=== PATIENT | male | born 1955 | race Caucasian/White ===

== ENCOUNTER 2022-03-31 11:37 | Outpatient (CLI) | payer MEDICARE, SELFPAY ==
--- NOTE | 2022-03-31 | ECG_ITS ---
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 Interpretive Statements NAME OF STUDY: TREADMILL STRESS TEST INDICATION: htn, PROCEDURE: At the baseline, the patient's blood pressure was 180/90 with a heart rate of 73. The baseline electrocardiogram showed normal sinus rhythm with normal ST-Ts. Right bundle branch block pattern The patient exercised for 4 minutes and 31 seconds on a standard Preet protocol. Patient attained a maximum heart rate of 114 beats per minute(73% of the maximum predicted heart rate) with a blood pressure at the peak exercise of 198/88 mm Hg. The EKG at the peak exercise revealed no significant changes. Patient did not have any chest pain or any significant cardiac arrhythmias with the exercise During the recovery phase, there were no new changes. Blood pressure at the end of the recovery phase was 127/88 mm Hg with a heart rate of 85 per minute. CONCLUSION: 1. Normal EKG response to treadmill exercise 2. No exercise-induced chest pain or cardiac arrhythmia 3. Impaired exercise tolerance, attained a maximum of 7.0 METs Electronically Signed On 04-02-2022 18:07:53 CDT by Erica Salinas M.D. [id number]
[2022-03-31 12:36] VITALS: BMI 28.3
[2022-03-31 13:02] VITALS: BP 127/88; PULSE 85
== END 2022-03-31 11:38 | disposition home or self-care (01) ==
LOC: CDL 11:41
PROVIDERS: PCP Family Medicine; Visit Provider Nurse Practitioner Family
DX: I10 Essential (primary) hypertension (principal)
CPT/HCPCS: 93017

== ENCOUNTER 2024-06-23 20:56 | Inpatient (IN) | payer MEDICARE, SELFPAY ==
[2024-06-23 19:56] VITALS: BP 143/82; PULSE 64; RESP 16; TEMP 36.9; O2SAT 96
[2024-06-23 20:00] VITALS: BP 143/82; PULSE 63; RESP 13; O2SAT 96
--- NOTE | 2024-06-23 21:07 | PC.RESP ---
1956 EKG cancelled due to patient not being in the hospital at this time.
--- NOTE | 2024-06-23 21:58 | ECG_ITS ---
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
[2024-06-23 22:00] VITALS: PULSE 63
[2024-06-23 22:15] LABS: Bacteria Urine None Seen /hpf; Hyaline Casts Urine 0-4 /lpf; RBC Urine 0-2 /hpf (0-2); Squamous Epithelial Cell Urine 0-5 /hpf (0-5); WBC Urine 0-5 /hpf (0-5)
[2024-06-23 22:17] LABS: Platelet Count 212 10^3/cmm (157-399)
[2024-06-23 22:26] LABS: Add Urine Microscopic? YES; Bilirubin Urine Negative (Negative); Blood Urine Negative (Negative); Glucose Urine UA Trace (Normal); Ketones Urine Trace (Negative); Leukocyte Esterase Urine Negative (Negative); Nitrate Urine Negative (Negative); Protein Urine Negative (Negative); Specific Gravity, Urine 1.016 (1.005-1.030); Urine Appearance Cloudy (CLEAR); Urine Color Yellow (Yellow); pH Urine 5.5 (5-7)
[2024-06-23] MEDS: heparin drip 25,000 UNIT/500 ML PREMIX 24 UNIT IV (22:30)
[2024-06-23] MEDS: heparin 5,000 unit/mL INJ 1 mL IVP (22:31)
[2024-06-23 22:33] LABS: Lactic Sepsis W/Reflex 1.6 mmol/L (0.5-2.2)
[2024-06-23] MEDS: flu vacc pf 24-25 (6 mos+) SYRINGE 45 MCG IM (22:37)
[2024-06-23 22:40] LABS: Troponin(5th) Baseline 227 ng/L (0-15)
[2024-06-23 22:44] VITALS: O2SAT 96
--- NOTE | 2024-06-23 22:50 | P.HP_ITS ---
Providers/Chief Complaint 2 Admitting Physician: Mable Hayes MD Primary Care Provider: Deshaun Alan Chief Complaint: Afib RVR Stemi History of Present Illness Daniel Jaramillo is a 69 year old male with PMH HTN, DM, hypothyroidism, transferred from outside hospital due to c/o chest pain. Patient states he has been experiencing intermittent chest discomfort for about 2 weeks now. 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 There he was found to have A-fib with RVR with heart rate between 1 40-1 50. He received 2 pushes of IV Cardizem, 250 mcg of IV digoxin. Converted into sinus rhythm. At the time of this assessment he continues to be in sinus rhythm with a heart rate of 70/min. Denies any known history of A-fib with RVR. He has received 324 mg aspirin and was started on heparin anticoagulation because his troponins trended up from 47- 53 at the outside hospital. Denies known history of coronary artery disease. He had a stress test here in 2021 which showed normal EKG response to treadmill exercise. No known history of DVT or PE. Review of Systems 2 General: Reports: 10 or more systems reviewed and unremarkable except in HPI and below Const: Denies: fever(s), chills or body aches Eyes: Denies: change in vision, blurry vision or photophobia ENMT: Reports: hoarseness; Denies: throat pain, enlarged tonsils, odynophagia or nasal congestion Card: Denies: chest pain, palpitations, irregular heart rhythm, edema, swelling of feet/ankles, lightheadedness, pre-syncope, dyspnea on exertion or orthopnea Resp: Denies: dyspnea, productive cough, non-productive cough, wheezing, stridor, pain on inspiration, change in phlegm color, hemoptysis or chest congestion GI: Denies: abdominal pain, nausea, vomiting, hematemesis, coffee ground emesis, dysphagia, heartburn, diarrhea, constipation, GI cramping, change in stool character, hematochezia or melena : Denies: flank pain, dysuria, urinary frequency, urinary urgency, urinary hesitancy or hematuria Musc: Denies: neck pain, back pain, extremity pain, joint swelling, joint warmth or deformity Neuro: Denies: headache(s), numbness in extremities, weakness in extremities, sensory changes, difficulty walking, frequent falls, dizziness, vertigo, behavioral changes, Slurred speech present or seizure-like activity Psych: Denies: anxiety, depression, suicidal ideation or homicidal ideation Endo: Denies: polyuria, polydipsia, tired all the time, cold intolerance or hot flashes Maxi/Lymph: Denies: easy bruising or easy bleeding Medications/Allergies Home Medications Medication Instructions Recorded Confirmed Last Taken Type amlodipine 5 mg tablet 5 mg PO BID 06/23/24 06/23/24 Unknown History aspirin 81 mg tablet,delayed 81 mg PO DAILY 06/23/24 06/23/24 Unknown History release tnaygglhnr-ergzlpjgnisru-qkvrkdau 1 - 2 tab PO BID PRN Headache 06/23/24 06/23/24 Unknown History 50 mg-325 mg-40 mg tablet doxazosin 4 mg tablet 4 mg PO BEDTIME 06/23/24 06/23/24 Unknown History empagliflozin 10 mg tablet 10 mg PO DAILY 06/23/24 06/23/24 Unknown History (Jardiance) levothyroxine 200 mcg tablet 200 mcg PO QAM 06/23/24 06/23/24 Unknown History liothyronine 5 mcg tablet 5 mcg PO QAM 06/23/24 06/23/24 Unknown History losartan 100 mg tablet 100 mg PO DAILY 06/23/24 06/23/24 Unknown History lovastatin 40 mg tablet 40 mg PO BEDTIME 06/23/24 06/23/24 Unknown History magnesium chloride 71.5 mg 400 mg PO DAILY 06/23/24 06/23/24 Unknown History (magnesium chloride) tablet,delayed release (Slow-Mag) montelukast 10 mg tablet 10 mg PO BEDTIME 06/23/24 06/23/24 Unknown History Allergies Allergy/AdvReac Type Severity Reaction Status Date / Time banana Allergy ALGY-Anaphy Verified 06/23/24 21:25 laxis codeine Allergy ALGY-Hives Verified 06/23/24 21:25 duck eggs Allergy ADR-Cramping Uncoded 06/23/24 21:25 of the Muscles Vitals/I&O/Wt Last Vital Signs Temp 98.5 F 06/23/24 19:56 Pulse 63 06/23/24 20:00 Resp 13 06/23/24 20:00 BP 143/82 06/23/24 20:00 Pulse Ox 96 06/23/24 22:44 O2 Del Method Room Air 06/23/24 22:44 Weight last 48 hrs Weight 85 kg Physical Exam 2 Narrative: General: No acute distress, AO x3 HEENT: PERRLA, pupils bilaterally equal and reactive, pallors not present Chest: Normal vesicular breath sounds, no added sounds, equal good air entry bilaterally CVS: S1-S2 regular, no murmurs, no tachycardia, no gallops, no rubs Abdomen: Soft, nontender, no organomegaly, bowel sounds present Neuro: No focal deficits, no facial deformity, AO x3, power 5/5 in all limbs Extremities: No edema clubbing or cyanosis Data 06/23/24 22:08 Other Labs: Reviewed labs from outside hospital Troponin baseline, 44, troponin 2 hours 57 with a delta of 13. Sodium 137, potassium 3.9, chloride 103, CO2 20, creatinine 1.09, glucose 250, T. bili 0.2, alkaline phosphatase 67, AST ALT 5/5 Chest x-ray: No acute cardiopulmonary process. A&P Assessment and plan (1) NSTEMI (non-ST elevated myocardial infarction): Patient with multiple cardiac risk factors presenting to the ER tonight with chief complaints of chest pain radiating into shoulder and jaw. From outside hospital 2-hour delta at 13 as noted above. Initial EKG at outside hospital with A-fib RVR for which she received 2 pushes of IV Cardizem and digoxin to 50 mcg x 1. Currently patient is noted to be in sinus rhythm. Monitor on CSU on continuous telemetry. Obtain troponin series currently at our hospital Patient states his chest pain is currently much improved, however still feels the chest to be a little bit sore Continue heparin infusion as started as outside hospital. Monitor platelets and PTT per protocol. He has received aspirin 324 mg already, continue with aspirin 81 mg p.o. daily Atorvastatin 40 mg daily Cardiology consult for possible angiogram Add Nitro-Bid 0.5 inch topically every 6 hours. (2) Hypertension: Continue home dose of doxazosin and losartan. Attempt to add beta-blockers depending on blood pressure trend. (3) Diabetes mellitus: Insulin sliding scale while in the hospital (4) Hypothyroidism: Low TSH at 0.12, check T3-T4. Continue home doses of levothyroxine and liothyronine. Plan DVT prophylaxis: Currently on heparin drip Full code Attestations 2 Medical Necessity Statement*: Greater than 2 midnight stay is anticipated for management of NSTEMI Coding Level of Care Code Acute Code for Chg Fwd High MDM includes number and complexity of problems actively addressed during encounter, amount and/or complexity of data reviewed/ordered and described risk of complication, morbidity or mortality of management as documented Diagnoses NSTEMI (non-ST elevated myocardial infarction) I21.4 Hypertension I10 Diabetes mellitus E11.9 Hypothyroidism E03.9
[2024-06-23 22:51] LABS: NT Pro B Type Natriuretic Pept 348 pg/mL (0-125); Procalcitonin 0.03 ng/mL (0-0.5); Thyroid Stimulating Hormone 0.12 uIU/mL (0.27-4.20); Vitamin B12 353 pg/mL (232-1245)
[2024-06-23 23:01] LABS: Iron 72 ug/dL (59-158); Percent Saturation 21.3 % (20-50); Total Iron Binding Capacity 338 mcg/dl; Unsaturated Iron Binding 266 ug/dL (112-347)
[2024-06-23 23:23] LABS: Free T4 Free Thyroxine 1.41 ng/dL (0.82-1.77)
[2024-06-24] VITALS (11 sets, daily range): BP systolic 130–161; BP diastolic 72–98; PULSE 57–73; RESP 11–18; TEMP 36.4–36.9; O2SAT 93–96; BMI 27.6
[2024-06-24 00:37] LABS: Troponin 5 2HR 318.6 ng/L (0-15); Troponin 5 2HR Delta 91.6 ABS# (0-10)
[2024-06-24] MEDS: nitroglycerin 1 gm/inch oint Pkt 0.5 INCH TOPICAL ×4 (01:53→21:02)
--- NOTE | 2024-06-24 02:27 | ECG_ITS ---
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
[2024-06-24 04:26] LABS: Basophils % 0.6 %; Eosinophils # 0.5 10^3/uL (0.0-0.8); Eosinophils % 6.7 %; Lymphocytes # 3.5 10^3/uL (0.8-4.8); Lymphocytes % 49.9 %; Mean Corpuscular HGB Conc 34.4 g/dL (30-55); Mean Corpuscular Hemoglobin 30.1 pg (27-33); Mean Corpuscular Volume 87.6 fl (82-101); Mean Platelet Volume 10.1 fL (7.4-10.4); Monocytes # 0.5 10^3/uL (0.2-0.9); Monocytes % 6.8 %; Neutrophils # 2.53 10^3/uL (1.8-7.7); Neutrophils % 35.9 %; Nucleated Red Blood Cells % 0 %; Platelet Count 207 10^3/cmm (157-399); Red Blood Count 4.45 10^6/uL (3.85-5.65); Red Cell Distribution Width 13.2 % (12.1-15.1); White Blood Count 7.05 10^3/uL (3.29-11.43)
--- NOTE | 2024-06-24 04:34 | USCV_ITS ---
Daniel Jaramillo Age: 69 Gender: M : 1955 Exam Date: 06/24/2024 13:41 Ordering Phys: Charisma Elizondo MD Technologist: Krishna Mcdonald Exam Location: [facility] [place] Indication: nstemi BP: 136 / 72 HR: 64 Rhythm: Sinus Technical Quality: Adequate MEASUREMENTS (Male / Female) Normal Values 2D ECHO LV Diastolic Diameter PLAX 6.0 cm 4.2 - 5.9 / 3.9 - 5.3 cm IVS Diastolic Thickness 1.1 cm 0.6 - 1.0 / 0.6 - 0.9 cm IVS Systolic Thickness 2.2 cm LVPW Diastolic Thickness 1.4 cm 0.6 - 1.0 / 0.6 - 0.9 cm LVPW Systolic Thickness 1.8 cm LVOT Diameter 2.1 cm LV Ejection Fraction 2D Teich 68.5 % LV Ejection Fraction MOD 4C 63.9 % LV Ejection Fraction MOD 2C 83.8 % LV Ejection Fraction 2C AL 83.4 % LA Diameter 4.3 cm RA Systolic Volume 4C AL 47.0 ml RA Systolic Volume 4C MOD 47.4 ml LA Sys Volume AL 49.3 cm cubed LA Sys Volume Index AL 24.0 cm cubed/m squared Aorta at Sinotubular Diameter 2.6 cm IVC Diameter 1.9 cm M-MODE LA Ao Ratio MM 1.5 AV Cusp Separation MM 2.1 cm DOPPLER AV Peak Velocity 284.0 cm/s LVOT Peak Velocity 114.0 cm/s AV Area Cont Eq vti 3.4 cm squared AV Area Cont Eq pk 1.4 cm squared MV Peak Velocity 119.0 cm/s MV Area PHT 3.5 cm squared Mitral E to A Ratio 1.0 TV Peak Velocity 309.3 cm/s TR Peak Velocity 379.0 cm/s TR Peak Gradient 57.5 mmHg TR Mean Velocity 284.0 cm/s TR Mean Gradient 36.1 mmHg TR Velocity Time Integral 99.3 cm PV Peak Velocity 104.3 cm/s RV Ejection Time 0.3 s FINDINGS Left Ventricle Normal left ventricular size, systolic function and wall thickness, with no regional wall motion abnormalities. Left ventricular ejection fraction is estimated at 60 %. Grade II/IV diastolic dysfunction, moderately elevated filling pressures. Right Ventricle The right ventricle is normal in size and function. Right Atrium The right atrium is normal in size. Left Atrium Moderately increased left atrial size. Mitral Valve Mildly thickened mitral valve. No mitral valve stenosis. Moderate mitral valve regurgitation. Aortic Valve Moderate aortic valve calcification.aortic valve mild restriction. Mild aortic valve regurgitation. Tricuspid Valve Mild tricuspid valve regurgitation. Pulmonic Valve Structurally normal pulmonic valve without significant stenosis. There is no pulmonic regurgitation. Pericardium Normal pericardium without effusion. Aorta Normal ascending aorta dimension. IVC The inferior vena cava appears normal. CONCLUSIONS Normal left ventricular size, systolic function and wall thickness, with no regional wall motion abnormalities. Left ventricular ejection fraction is estimated at 60 %. Grade II/IV diastolic dysfunction, moderately elevated filling pressures. Moderately increased left atrial size. Mildly thickened mitral valve. No mitral valve stenosis. Moderate mitral valve regurgitation. Moderate aortic valve calcification.aortic valve mild restriction. Mild aortic valve regurgitation. There is no pericardial effusion. Right atrial pressure is around 5 mm of mercury. Jenny Mcdermott MD (Electronically Signed) Final Date: 24 June 2024 17:59 S
[2024-06-24 04:46] LABS: Partial Thromboplastin Time 76.1 SECONDS (23.9-36.7)
[2024-06-24 04:50] LABS: Alanine Aminotransferase 24 U/L (0-41); Albumin Level 3.8 g/dL (3.5-5.2); Alkaline Phosphatase 53 U/L (40-130); Anion Gap 15.2 (5-19); Aspartate Amino Transferase 25 U/L (0-40); Blood Urea Nitrogen 13 mg/dL (8-23); Calcium 8.5 mg/dL (8.5-10.5); Carbon Dioxide 22 mmol/L (22-29); Chloride 109 mmol/L (98-107); Creatinine Clr Calc Pharmacy 69.4727; Globulin 2.6 g/dL (1.3-4.6); Glomerular Filtration Rate 66.6 mL/min (90-130); Glucose 166 mg/dL (65-115); Magnesium 1.8 mg/dL (1.7-2.3); Osmolality Calculated 298 mOsm/kg (285-295); Phosphorus 3.9 mg/dL (2.5-4.5); Potassium 4.2 mmol/L (3.5-5.1); Sodium 142 mmol/L (136-145); Total Bilirubin 0.2 mg/dL (0.15-1.2); Total Protein 6.4 g/dL (6.6-8.7)
[2024-06-24 04:51] LABS: Chol HDL Ratio 5.15 mg/dL (1.0-5.00); Cholesterol 139 mg/dL (0-200); HDL Cholesterol 27 mg/dL (60-100); LDL Cholesterol Calculated 74 mg/dL (50-129); LDL HDL Ratio 2.74 RATIO (0.00-3.22); Triglycerides 191 mg/dL (0-150)
[2024-06-24 04:56] LABS: Estmated Average Glucose 200; Hemoglobin A1C 8.6 % (4.0-6.0)
[2024-06-24 04:57] LABS: Procalcitonin 0.04 ng/mL (0-0.5)
[2024-06-24 05:01] LABS: Troponin 5 6HR 437.7 ng/L (0-15); Troponin 5 6HR Delta 210.7 ng/L (0-12)
[2024-06-24 05:46] LABS: Folate Level 9.9 ng/mL (4.5-32.2)
[2024-06-24] MEDS: liothyronine 5 mcg Tablet PO (06:15)
[2024-06-24] MEDS: levothyroxine 200 mcg Tablet PO (06:15)
[2024-06-24 06:32] LABS: Glucose Point of Care 182 mg/dL (70-110)
[2024-06-24] MEDS: losartan 50 mg Tablet 100 MG PO (08:34)
[2024-06-24] MEDS: aspirin 81 mg EC Tablet PO (08:35)
[2024-06-24] MEDS: magnesium oxide 400 mg tablet PO (08:35)
[2024-06-24] MEDS: pantoprazole 40 mg SDV IVP (08:35)
--- NOTE | 2024-06-24 10:13 | XACV_ITS ---
Exam Room: [facility] Ht: 475 cm Wt: 31 kg BSA: 1.78 m2 Gender: Male : 1955 Any Known Allergies: Codeine Exam Priority: Routine Procedure(s): Procedure Description: Diagnostic procedure Procedure Description: Left Heart Catheterization Procedure Description: Left ventriculography Procedure Description: Coronary Angiography Baldemar KUMAR; Diagnostic Cath Status: Urgent Diagnostic Findings * Left Main has no disease. * Proximal Left Anterior Descending: significant 75% stenosis, LEO: 3 flow. * Distal Left Anterior Descending: subtotal occlusion, LEO: 3 flow. * Proximal Right Coronary Artery to Distal Right Coronary Artery: total occlusion, LEO: 3 flow. * Distal Circumflex: total occlusion, LEO: 3 flow. * Distal Circumflex to AV groove continuation of Circumflex Artery collaterallization. * First Obtuse Marginal Branch Segment: obstructive 70% stenosis, LEO: 3 flow. * Second Obtuse Marginal Branch Segment: significant 80% stenosis, LEO: 3 flow. * BloodVessel1: severe 90% stenosis, LEO: 3 flow. * Coronary angiography shows right dominance. Conclusions 1. There is total occlusion coronary artery disease with three vessel disease. 2. All gu are normal. 3. Normal left ventricular systolic function. Ejection fraction of 55%. Recommendations * 1-Return to CSU for close monitoring 2-Continue IV heparin drip as per ACS protocol 3-Statin with LDL goal of 70 mg/dl, aspirin 81 mg p.o. daily for life long 4-CT surgery consults for CABG 5-Optimal medical management for [place] 7-Follow up with Dr. Mcdermott in four weeks and establish care with primary care physician. Interventional RX Recommendation: CABG Diagnostic RX Recommendation: CABG LV EDP: 12 mmHg Ventriculography Ejection Fraction: 55.0 % Left Ventriculography Findings: * Normal left ventricle ejection fraction. Pressures Phase:Rest AO : 129 / 87 ( 107 ) @ 12:13:00 PM 145 / 76 ( 105 ) @ 12:21:00 PM 143 / 74 ( 95 ) @ 12:21:00 PM LV : 148 / -4 / 21 @ 12:20:00 PM 139 / -1 / 23 @ 12:21:00 PM 142 / 0 / 23 @ 12:21:00 PM Valves Phase:DefaultPhase AV : 0.0 @ 11:26:36 AM AV Mean Gradient: 0.0 @ 11:26:36 AM Clinical Evaluation EBL: 5mL-10mL Procedural Details Procedure Consent Obtained. Pre-Procedure Time Out. Identified patient by full name and date of as verbalized by the patient/guarantor. Does the consent match the physician's order: Yes. Accurate & Complete Informed Consent: Yes. Inpatient/Outpatient History & Physical on Chart: Yes. If H&P is completed, is and addenduem needed: Yes. Visualize and Verify Site with Patient/Guarantor: N/A. Relevant Radiology Images available: Yes. The risks, benefits, and alternatives of sedation and/or procedure were discussed by physician. The patient agrees to continue. Procedure started. [facility] Clinical Fraility Score: 3: Managing Well. Trainmaster Indications: ACS > 24 hours/NSTEMI. Chest Pain Symptom Assessment: Typical Angina Symptoms. Cardiovascular Instability: No. Correct patient, site and procedure confirmed by cath team. Current diagnosis: NSTEMI. PERRLA. 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 Lungs clear x 5 lobes. IV Site on Arrival: 18 gauge in the right anticubital. IV Fluids: 0.9% NaCl at KVO. 0 mL infused prior to medical laboratory technical officer. Pre Procedural Pulses: bilateral dorsalis pedis was Doppled. Pre Procedural Pulses: bilateral posterior tibial was Doppled. Pre Procedural Pulses: bilateral radial was 3+. Oxygen started at 2liters/min via nasal canula. right groin was prepped with chloroprep then draped in the usual sterile fashion. right radial was prepped with chloroprep then draped in the usual sterile fashion. Physician notified. Baseline sample Acquired. HR: 62 BPM. Patient's family unavailable. Equipment: 6F - Radial. Cardiac Cath Pack. ACIST Manifold Kit Model BT 2000. Heparinized Saline (2 units/mL), 1000 mL bag. Physician arrived. Physician scrubbed in. Immediate Pre-Procedure Time Out. Correct Patient: Yes; Correct Procedure: Yes; Correct Site: Yes; Correct Patient Position: Yes; Correct Supplies: Yes; Dried Flammable Prep: Yes; Blood Products Available: N/A;. Lidocaine 1% infiltrated to the right radial. Arterial access obtained. A 5 martiniquais TIG catheter in over the exchange J wire. ACT drawn. Results 141 seconds. Therapeutic limits - pre-heparin administration 90-150 seconds and monitoring heparin during a vascular procedure >250 seconds. Multiple views taken of left coronary artery. Multiple views taken of right coronary artery. Catheter redirected to the RCA. Cineography of the RCA performed. Dr. Mcdermott scrubbed out to view cineography. Dr. Mcdermott scrubbed in. Catheter removed over the exchange J wire. A 5 martiniquais Angled Pig catheter in over the exchagne J wire. EDP Sample taken: LV 148/-4,21; HR: 65 BPM; SpO2: 96%. LV gram performed in DANIELS @ 10 mL/second for a total of 30 mL. EDP Sample taken: LV 139/-2,23; HR: 69 BPM; SpO2: 97%. Pullback taken: LV 142/0,23; AO 145/76(105); Mean: 0mmHg, Peak to Peak: 0mmHg, SEP: 6sec/min; HR: 70 BPM; SpO2: 96%. Catheter removed over the exchange J wire. Physician scrubbed out. A TR Band was successful obtaining hemostatsis at the Right Radial artery insertion site. Post Procedure: Pulses reassessed and unchanged. PERRLA. 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 No VTE prophylaxis required. Medication's Wasted: Lidocaine 1% = 17 mL. Medication's Wasted: Nitro = 49.8 mg. Medication's Wasted: Heparin = 3000 units. Total IV fluids: 20 mL. Post-op diagnosis: multivessel CAD. Complications: none. Estimated blood loss: 5mL-10mL. Responsiveness - Normal response to verbal stimuli; alert and oriented, PERRLA. Airway - Unaffected, no intervention required; spontaneous ventilation. Circulation: W/N/L, pulses unchanged. Nausea/Vomiting: No. Procedure completed. Patient transferred by bed to 1st floor. Vital chart was stopped. Access Site Site: Right Radial artery Sheath Size: 6 Fr Hemostasis Method: TR Band Hemostasis Success: Successful Procedure Medications Start: 10:42 AM Stop: :42 AM Medication: Versed Amount: 1 mg Route: I.V. Start: 10:43 AM Stop: 10:43 AM Medication: Fentanyl Amount: 50 mcg Route: I.V. Start: 10:43 AM Stop: :43 AM Medication: Benadryl Amount: 50 mg Route: I.V. Start: 10:54 AM Stop: 10:54 AM Medication: Nitrogylcerin Amount: 200 mcg Route: I.A. Start: 11:00 AM Stop: 11:00 AM Medication: Heparin Amount: 5000 units Route: I.V. Start: 11:05 AM Stop: 11:05 AM Medication: Versed Amount: 1 mg Route: I.V. Start: 11:14 AM Stop: 11:14 AM Medication: Fentanyl Amount: 50 mcg Route: I.V. I, the attending physician, have reviewed and verified all procedure medications. Yes, all medications given per verbal order History/Risk Factors Hypertension: Yes Dyslipidemia: No Peripheral Arterial Disease (PAD): No Myocardial Infarction ([place]): No Obesity: No Renal Disease: No Tobacco Use: Former Prior Interventions PCI: No CABG: No Valve Surgery: No Report Signatures Finalized by Jenny Mcdermott MD on 06/24/2024 06:23 PM
--- NOTE | 2024-06-24 10:34 | P.CONIM_ITS ---
Providers/Reason For Consult 2 Consulting Physician/Specialty*: Jenny Mcdermott MD Reason for Consult*: Non-ST elevation VA Atrial fibrillation with rapid ventricle response Chest pain Requesting Physician: 69-year-old male past medical history si gnificant for hypertension hyperlipidemia history of hypothyroidism and tobacco abuse quit 15 years ago presented to [facility] with shortness of breath chest pain palpitation noted to be in A-fib with RVR given 2 rounds of IV Cardizem boluses followed by IV digoxin, he converted into sinus rhythm chest pain improved, he ruled in for non-ST elevation VA. It is the reason patient was transferred to [facility], overnight troponin increased to more than 400 which is high-sensitivity assay, today I saw the patient he remains in sinus rhythm twelve-lead EKG at was suggestive of baseline right bundle branch block which is not different from his previous EKG, since patient ruled in for non-ST elevation VA and now in sinus rhythm therefore we will proceed with left heart catheterization. Patient has been explained all risk- benefit and alternative for the procedure. He would like to proceed with it. Attending Physician: Jenny Malik MD Primary Care Provider: Deshaun Alan History of Present Illness History of Present Illness Daniel Jaramillo is a 69 year old male Medications/Allergies Home Medications Medication Instructions Recorded Confirmed Last Taken Type amlodipine 5 mg tablet 5 mg PO BID 06/23/24 06/23/24 Unknown History aspirin 81 mg tablet,delayed 81 mg PO DAILY 06/23/24 06/23/24 Unknown History release [id number]-[id number]-cvrrzqgz 1 - 2 tab PO BID PRN Headache 06/23/24 06/23/24 Unknown History 50 mg-325 mg-40 mg tablet doxazosin 4 mg tablet 4 mg PO BEDTIME 06/23/24 06/23/24 Unknown History empagliflozin 10 mg tablet 10 mg PO DAILY 06/23/24 06/23/24 Unknown History (Jardiance) levothyroxine 200 mcg tablet 200 mcg PO QAM 06/23/24 06/23/24 Unknown History liothyronine 5 mcg tablet 5 mcg PO QAM 06/23/24 06/23/24 Unknown History losartan 100 mg tablet 100 mg PO DAILY 06/23/24 06/23/24 Unknown History lovastatin 40 mg tablet 40 mg PO BEDTIME 06/23/24 06/23/24 Unknown History magnesium chloride 71.5 mg 400 mg PO DAILY 06/23/24 06/23/24 Unknown History (magnesium chloride) tablet,delayed release (Slow-Mag) montelukast 10 mg tablet 10 mg PO BEDTIME 06/23/24 06/23/24 Unknown History Allergies Allergy/AdvReac Type Severity Reaction Status Date / Time banana Allergy ALGY-Anaphy Verified 06/23/24 21:25 laxis codeine Allergy ALGY-Hives Verified 06/23/24 21:25 duck eggs Allergy ADR-Cramping Uncoded 06/23/24 21:25 of the Muscles Current Medications Generic Name Dose Route Start Last Admin Trade Name Freq PRN Reason Stop Dose Admin Aspirin 81 mg 06/24/24 09:00 06/24/24 08:35 Aspirin 81 Mg Ec Tablet PO 81 mg DAILY DERREK Administration Heparin Sodium/Sodium Chloride 25,000 unit in 500 mls @ 0 mls/hr 06/23/24 22:00 06/24/24 04:52 Heparin Drip IV 12.94 unit/kg/hr CONT DERREK 22 mls/hr Titration Protocol Per Protocol Insulin Human Lispro 0 unit 06/24/24 08:00 06/24/24 08:11 Insulin Lispro 100 Unit/1 Ml SUBCUT Not Given WM&BEDTIME DERREK Protocol Levothyroxine Sodium 200 mcg 06/24/24 06:00 06/24/24 06:15 Levothyroxine 200 Mcg Tablet PO 200 mcg QAM DERREK Administration Liothyronine Sodium 5 mcg 06/24/24 06:00 06/24/24 06:15 Liothyronine 5 Mcg Tablet PO 5 mcg QAM DERREK Administration Losartan Potassium 100 mg 06/24/24 09:00 06/24/24 08:34 Losartan 50 Mg Tablet PO 100 mg DAILY DERREK Administration Magnesium Oxide 400 mg 06/24/24 09:00 06/24/24 08:35 Magnesium Oxide 400 Mg Tablet PO 400 mg DAILY DERREK Administration Nitroglycerin 0.5 inch 06/24/24 01:30 06/24/24 06:32 Nitroglycerin 1 Gm/Inch Oint Pkt TOPICAL 0.5 inch Q6H DERREK Administration Pantoprazole Sodium 40 mg 06/24/24 09:00 06/24/24 08:35 Pantoprazole 40 Mg Sdv IVP 40 mg DAILY DERREK Administration Vitals/I&O/Wt Last Vital Signs Temp 97.8 F 06/24/24 07:12 Pulse 64 06/24/24 07:12 Resp 16 06/24/24 07:12 BP 147/76 06/24/24 08:34 Pulse Ox 94 06/24/24 07:12 O2 Del Method Room Air 06/24/24 07:12 06/23/24 06/24/24 06/24/24 22:59 06:59 14:59 Intake Total 152.8 / 152.8 Output Total 750 / 750 200 / 200 Balance -597.2 / -597.2 -200 / -200 Weight last 48 hrs Weight 187 lb 6.287 oz Weight 187 lb 6.287 oz Physical Exam 2 Const: OTHER: GENERAL: Patient is alert, awake and oriented x3. HEART: Regular S1 and S2. No murmur, rub or gallop. LUNGS: Clear to auscultate bilaterally. CENTRAL NERVOUS SYSTEM: Grossly nonfocal. EXTREMITIES: Lower extremities with out edema bilaterally. Data 06/24/24 04:02 06/24/24 04:02 A&P Assessment and plan (1) NSTEMI (non-ST elevated myocardial infarction): Patient ruled in for non-ST elevation VA with troponin bump more than 400 we will therefore proceed with left heart catheterization. Continue aspirin and statin add beta-eloise, dual antiplatelet therapy will be added after left heart cath. (2) Hypertension: Well-controlled continue current regimen (3) Diabetes mellitus: As per medicine Plan Because of non-ST elevation VA and needing left heart catheterization patient requires stay which will cross more than 2 midnights. Coding Level of Care Code Acute Code for [facility] Diagnoses NSTEMI (non-ST elevated myocardial infarction) I21.4 Hypertension I10 Diabetes mellitus E11.9
--- NOTE | 2024-06-24 10:40 | P.PN_ITS ---
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 Vitals/I&O/Wt Last Vital Signs Temp 97.8 F 06/24/24 07:12 Pulse 64 06/24/24 07:12 Resp 16 06/24/24 07:12 BP 147/76 06/24/24 08:34 Pulse Ox 94 06/24/24 07:12 O2 Del Method Room Air 06/24/24 07:12 06/23/24 06/24/24 06/24/24 22:59 06:59 14:59 Intake Total 152.8 / 152.8 Output Total 750 / 750 200 / 200 Balance -597.2 / -597.2 -200 / -200 Weight last 48 hrs Weight 85 kg Weight 85 kg Physical Exam 2 Narrative: Awake and alert GCS 15 Nitropaste on Continue heparin drip Pleasant cooperative Pleasant cooperative Abdomen soft Currently on room air Data 06/24/24 04:02 06/24/24 04:02 A&P Assessment and plan (1) Hypertension: (2) NSTEMI (non-ST elevated myocardial infarction): (3) New onset a-fib: (4) Diabetes mellitus: (5) Hypothyroidism: Plan Going for angiogram Continue consistent carb cardiac diet Insulin sliding scale Optimize antihypertensive regimen Patient has converted to sinus rhythm Will touch with cardiology if continuation of anticoagulating agent is needed versus dual antiplatelet therapy Attestations 2 Medical Necessity Statement*: Continue medical management Diagnoses Hypertension I10 NSTEMI (non-ST elevated myocardial infarction) I21.4 New onset a-fib I48.91 Diabetes mellitus E11.9 Hypothyroidism E03.9
--- NOTE | 2024-06-24 10:42 | W.PM.OPSUD ---
Surgery/Procedure H&P Update DATE OF PROCEDURE: June 24, 2024 DATE H&P PERFORMED: 06/24/24 H&P UPDATE INFORMATION: I have reviewed H&P completed within last 30 days, I have examined patient prior to procedure and No changes to prior documentation PREOP DIAGNOSIS: Non-ST elevation PLANNED PROCEDURE: Left heart cath/percutaneous angioplasty if indicated PATIENT REASSESSED PRIOR TO SEDATION, WITH NO CHANGE NOTED: Yes PHYSICAL EXAM: alert, oriented x 3, clear to auscultation bilaterally, regular rate & rhythm and operative site marked AIRWAY EVAL/ANESTHESIA PLAN: ASA II, Risks, benefits & alternatives of sedation and/or procedure discussed and Patient agrees to continue as planned ADDITIONAL INFORMATION: Mallampati 2
[2024-06-24] MEDS: metoprolol succinate ER (24 HR) 25 mg Tablet 12.5 MG PO (12:27)
[2024-06-24] MEDS: insulin lispro 100 unit/1 mL SUBCUT (12:28)
[2024-06-24 13:13] LABS: Partial Thromboplastin Time 135.2 SECONDS (23.9-36.7)
[2024-06-24 13:26] LABS: Glucose Point of Care 150 mg/dL (70-110)
[2024-06-24] MEDS: isosorbide mononitrate 20 mg Tablet PO (17:30)
[2024-06-24 17:41] LABS: Glucose Point of Care 116 mg/dL (70-110)
[2024-06-24] MEDS: montelukast sodium 10 mg Tablet PO (21:00)
[2024-06-24] MEDS: atorvastatin 40 mg Tablet 80 MG PO (21:00)
[2024-06-24] MEDS: doxazosin 4 mg Tablet PO (21:00)
[2024-06-24] MEDS: enoxaparin 80 mg/0.8 mL Syringe SUBCUT (21:01)
--- NOTE | 2024-06-24 21:30 | PC.NURSE ---
called Dr Mcdermott to clarify if heparin was to be restarted since order was still active and microbiology lab analyst report states recommendation to continue IV heparin, received order to dc heparin gtt and start therapeutic lovenox
--- NOTE | 2024-06-24 21:32 | PC.NURSE ---
notified Dr Estrada of patient having two orders for lipitor (80 mg and 20 mg), received order to dc order for 20 mg lipitor
[2024-06-24 22:04] LABS: Glucose Point of Care 142 mg/dL (70-110)
[2024-06-25] VITALS (12 sets, daily range): BP systolic 105–179; BP diastolic 62–90; PULSE 62–83; RESP 14–25; TEMP 36.6–37.1; O2SAT 93–96
[2024-06-25] MEDS: nitroglycerin 1 gm/inch oint Pkt 0.5 INCH TOPICAL ×4 (01:39→21:40)
[2024-06-25 04:57] LABS: Basophils % 0.3 %; Eosinophils # 0.3 10^3/uL (0.0-0.8); Eosinophils % 3.5 %; Hematocrit 38.4 % (37-53); Lymphocytes # 2.6 10^3/uL (0.8-4.8); Lymphocytes % 29.6 %; Mean Corpuscular HGB Conc 33.3 g/dL (30-55); Mean Corpuscular Volume 87.1 fl (82-101); Mean Platelet Volume 10.2 fL (7.4-10.4); Monocytes # 0.6 10^3/uL (0.2-0.9); Monocytes % 6.8 %; Neutrophils # 5.31 10^3/uL (1.8-7.7); Neutrophils % 59.6 %; Nucleated Red Blood Cells % 0 %; Platelet Count 208 10^3/cmm (157-399); Red Blood Count 4.41 10^6/uL (3.85-5.65); Red Cell Distribution Width 13.2 % (12.1-15.1); White Blood Count 8.92 10^3/uL (3.29-11.43)
[2024-06-25 05:27] LABS: Anion Gap 11.9 (5-19); Blood Urea Nitrogen 11 mg/dL (8-23); Calcium 8.6 mg/dL (8.5-10.5); Carbon Dioxide 24 mmol/L (22-29); Chloride 103 mmol/L (98-107); Creatinine Clr Calc Pharmacy 69.3255; Glomerular Filtration Rate 66.6 mL/min (90-130); Glucose 164 mg/dL (65-115); Osmolality Calculated 283 mOsm/kg (285-295); Potassium 3.9 mmol/L (3.5-5.1); Sodium 135 mmol/L (136-145)
[2024-06-25] MEDS: levothyroxine 200 mcg Tablet PO (05:54)
[2024-06-25] MEDS: liothyronine 5 mcg Tablet PO (05:54)
[2024-06-25 06:38] LABS: Glucose Point of Care 170 mg/dL (70-110)
[2024-06-25] MEDS: losartan 50 mg Tablet 100 MG PO (08:00)
[2024-06-25] MEDS: magnesium oxide 400 mg tablet PO (08:00)
[2024-06-25] MEDS: isosorbide mononitrate 20 mg Tablet PO ×2 (08:02→18:30)
[2024-06-25] MEDS: aspirin 81 mg EC Tablet PO (08:02)
[2024-06-25] MEDS: clopidogrel 75 mg Tablet PO (08:02)
[2024-06-25] MEDS: enoxaparin 80 mg/0.8 mL Syringe SUBCUT ×2 (08:03→21:42)
[2024-06-25] MEDS: metoprolol succinate ER (24 HR) 25 mg Tablet 12.5 MG PO (08:03)
[2024-06-25] MEDS: insulin lispro 100 unit/1 mL SUBCUT ×2 (08:03→21:39)
[2024-06-25] MEDS: pantoprazole 40 mg SDV IVP (08:04)
--- NOTE | 2024-06-25 09:12 | PC.SOCIAL ---
IMM Update Pg. 2 of IMM Updated and reviewed with patient. Copy provided.
--- NOTE | 2024-06-25 09:35 | P.PN_ITS ---
Subjective 2 Subjective: Staged procedure on Tuesday I will advance his diet to cardiac Patient is not endorsing active chest pain Nitropaste is still on Vitals/I&O/Wt Last Vital Signs Temp 97.8 F 06/25/24 04:00 Pulse 73 06/25/24 08:02 Resp 22 H 06/25/24 04:00 BP 121/70 06/25/24 08:02 Pulse Ox 96 06/25/24 04:00 O2 Del Method Room Air 06/24/24 16:00 06/24/24 06/25/24 06/25/24 22:59 06:59 14:59 Intake Total 947.2 / 1547.2 Output Total 550 / 1300 150 / 1450 Balance 397.2 / 247.2 -150 / 97.2 Weight last 48 hrs Weight 84.414 kg Weight 84.595 kg Weight 85 kg Weight 85 kg Weight 85 kg Physical Exam 2 Narrative: Hemodynamically stable GCS 15 No active chest pain Pleasant cooperative Afebrile Nonfocal neuroexam Data 06/25/24 04:09 06/25/24 04:09 A&P Assessment and plan (1) Hypertension: (2) NSTEMI (non-ST elevated myocardial infarction): (3) New onset a-fib: (4) Diabetes mellitus: (5) Hypothyroidism: Plan Planning for staged procedure on Tuesday for multivessel disease with angioplasty Currently chest pain-free Nitropaste on Hemodynamically stable Cardiac diet for now He will finish 48 hours of heparin drip today, Continue dual antiplatelet therapy Attestations 2 Medical Necessity Statement*: Continue medical management Diagnoses Hypertension I10 NSTEMI (non-ST elevated myocardial infarction) I21.4 New onset a-fib I48.91 Diabetes mellitus E11.9 Hypothyroidism E03.9
--- NOTE | 2024-06-25 10:33 | PC.CHAP ---
Pastoral Care Encounter/Spiritual Assessment Type of Contact [] Declined software release engineer visit [] Patient/Family/Request visit [] Outpatient visit [] Follow-up visit [] Physician referral [] Code/Alert [x] Routine visit [] Staff referral [] Actively dying [] Patient sleeping [] Family support [] [] Out of room [] Palliative care [] [] Receiving care in room [] Pre-surgical visit [] Trauma [] Long length of stay [] ICU visit [] Other: Relational/Emotional Strength [] Patient feels connected with others/family/visitors/staff [] Distress [] Loneliness/isolation [] Abandonment Spirituality of Patient [x] Person of Zainab [] Attends Adventism of their Zainab [x] Believes in Prayer [] Reads Bible or Jewish materials [] There are Spiritual issues to be addressed Supervisor Accounts Receivable Interventions [x] Prayer [x] Active listening [] Non-anxious presence [] Spiritual/emotional support [] Crisis/trauma care [] Spiritual counseling [] Bereavement support [] Provided bereavement packet [x] Provided Bible/devotional materials [] Provided toy/stuffed animal, coloring book to patient or family member [] Provided Communion [] Anointing/Seymour [] Salvation [x Completed spiritual assessment [] Other: Impact on Illness or Injury [] Angry [] Fearful [] Anxious [] Often cries [] Exhaustion [] Unable to work [] Unable to attend moravian [] Unable to walk/stand [] Unable to read [] Unable to drive [] Unable to eat/drink [] Unable to sleep [] Unable to be with family [] Patient intubated [] Other: Summary Time spent with patient 15 min
[2024-06-25] MEDS: clopidogrel 75 mg Tablet 525 MG PO (11:12)
[2024-06-25 11:38] LABS: Glucose Point of Care 140 mg/dL (70-110)
--- NOTE | 2024-06-25 12:42 | P.PN_ITS ---
Subjective 2 Subjective: Patient is doing well today. VSS. He is without chest pain at this time. He has remained NSR. Currently taking DAPT with aspirin and Plavix. Creatinine stable at 1.1, unchanged from previously. Right wrist puncture site clean, dry, intact w/o s/s of hematoma or pseudoaneurysm. Previous heart cath done yesterday showed a total occlusion coronary artery disease with three vessel disease. Patient's EF is normal at 55%. Medications: Reviewed: Yes Vitals/I&O/Wt Last Vital Signs Temp 97.8 F 06/25/24 04:00 Pulse 83 06/25/24 09:40 Resp 14 06/25/24 09:40 BP 121/70 06/25/24 09:40 Pulse Ox 94 06/25/24 09:40 O2 Del Method Room Air 06/24/24 16:00 06/24/24 06/25/24 06/25/24 22:59 06:59 14:59 Intake Total 947.2 / 1547.2 Output Total 550 / 1300 150 / 1450 Balance 397.2 / 247.2 -150 / 97.2 Weight last 48 hrs Weight 186 lb 1.6 oz Weight 186 lb 8 oz Weight 187 lb 6.287 oz Weight 187 lb 6.287 oz Weight 187 lb 6.287 oz Physical Exam 2 Narrative: Conostitutional: No apparent distress, healthy appearing, well nourished HENMT: normoceophalic Eye: PERRL Neck: No carotid bruit bilaterally Muskuloskeletal: Full ROM Lymphatic: no lymphedema noted Respiratory: Normal respiratory effort, clear to auscultation bilaterally throughout all lung morales, no use of accessory muscles Cardio: No JVD, regular rate, regular rhythm, S1 S2 normal, no murmurs, peripheral pulses 2+ throughout GI: Normal to inspection, nondistended Extremities: Full ROM, normal, normal capillary refill, no cyanosis or edema Neuro: Alert and oriented x4, no focal motor deficits Psych: Affect normal, denies suicidal ideation, mental status grossly normal Skin: No rashes or lesions noted, no wounds Data 06/25/24 04:09 06/25/24 04:09 A&P Assessment and plan (1) NSTEMI (non-ST elevated myocardial infarction): Patient is s/p left heart cath that showed proximal LAD 75% stenosed with a distal occlusion, RCA totally occluded, distal circumflex totally occluded, OM1 70% stenosis and OM2 80% stenosis. After discussing with the patient the risks and benefits of coronary artery bypass grafting versus angioplasty and possible stenting, the patient has elected to undergo angioplasty and stenting here. 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 Patient was educated on the risks and benefits of procedure including but not limited to bleeding, SD, stroke, unsuccessful procedure, among others. He full agrees to proceed. Will load patient with 600 mg Plavix today, start 75 mg daily tomorrow. Will hold Lovenox tomorrow night as possible intervention on Tuesday around 10 AM (2) New onset a-fib: Patient arrived in A-fib RVR but was given 2 doses of IV Cardizem and 250 mg IV digoxin. He was converted to normal sinus rhythm and has remained since. At this time we will continue aspirin and Plavix. Patient may need heart monitor in the future. Continue beta-eloise for now, he is on Lovenox for anticoagulation (3) Hypertension: Well-controlled on the losartan and metoprolol Qualifiers: Hypertension type: primary hypertension Qualified Code(s): I10 - Essential (primary) hypertension Plan As stated above. Attestations 2 Medical Necessity Statement*: Patient require PCI since he refused CABG, his PCI scheduled for day after tomorrow, he requires continuation of hospitalization for optimization of medicine, will proceed with PCI coming Tuesday Coding Level of Care Code Acute Code for [facility] Diagnoses NSTEMI (non-ST elevated myocardial infarction) I21.4 New onset a-fib I48.91 Primary hypertension I10 Hypertension type: primary hypertension
[2024-06-25 18:07] LABS: Glucose Point of Care 132 mg/dL (70-110)
[2024-06-25 21:20] LABS: Glucose Point of Care 160 mg/dL (70-110)
[2024-06-25] MEDS: doxazosin 4 mg Tablet PO (21:38)
[2024-06-25] MEDS: montelukast sodium 10 mg Tablet PO (21:38)
[2024-06-25] MEDS: atorvastatin 40 mg Tablet 80 MG PO (21:38)
[2024-06-26] VITALS (12 sets, daily range): BP systolic 130–143; BP diastolic 70–78; PULSE 66–80; RESP 11–22; TEMP 36.4–37; O2SAT 95–97; BMI 27.4
[2024-06-26] MEDS: nitroglycerin 1 gm/inch oint Pkt 0.5 INCH TOPICAL ×2 (02:41→08:25)
[2024-06-26 04:45] LABS: Basophils % 0.4 %; Eosinophils # 0.3 10^3/uL (0.0-0.8); Eosinophils % 3.9 %; Hematocrit 38.8 % (37-53); Lymphocytes # 2.2 10^3/uL (0.8-4.8); Lymphocytes % 31.5 %; Mean Corpuscular HGB Conc 34.8 g/dL (30-55); Mean Corpuscular Hemoglobin 30.2 pg (27-33); Mean Corpuscular Volume 86.8 fl (82-101); Mean Platelet Volume 9.8 fL (7.4-10.4); Monocytes # 0.6 10^3/uL (0.2-0.9); Monocytes % 9.2 %; Neutrophils # 3.79 10^3/uL (1.8-7.7); Neutrophils % 54.9 %; Nucleated Red Blood Cells % 0 %; Platelet Count 188 10^3/cmm (157-399); Red Blood Count 4.47 10^6/uL (3.85-5.65); White Blood Count 6.92 10^3/uL (3.29-11.43)
[2024-06-26 05:08] LABS: Anion Gap 13.8 (5-19); Blood Urea Nitrogen 13 mg/dL (8-23); Calcium 8.4 mg/dL (8.5-10.5); Carbon Dioxide 25 mmol/L (22-29); Chloride 104 mmol/L (98-107); Creatinine Clr Calc Pharmacy 69.2596; Glomerular Filtration Rate 66.6 mL/min (90-130); Glucose 178 mg/dL (65-115); Osmolality Calculated 293 mOsm/kg (285-295); Potassium 3.8 mmol/L (3.5-5.1); Sodium 139 mmol/L (136-145)
[2024-06-26] MEDS: levothyroxine 200 mcg Tablet PO (05:58)
[2024-06-26] MEDS: liothyronine 5 mcg Tablet PO (05:58)
[2024-06-26 06:02] LABS: Glucose Point of Care 166 mg/dL (70-110)
[2024-06-26] MEDS: pantoprazole 40 mg SDV IVP (08:24)
[2024-06-26] MEDS: insulin lispro 100 unit/1 mL SUBCUT ×4 (08:25→21:45)
[2024-06-26] MEDS: magnesium oxide 400 mg tablet PO (08:25)
[2024-06-26] MEDS: isosorbide mononitrate 20 mg Tablet PO ×2 (08:25→17:44)
[2024-06-26] MEDS: clopidogrel 75 mg Tablet PO (08:26)
[2024-06-26] MEDS: enoxaparin 80 mg/0.8 mL Syringe SUBCUT (08:26)
[2024-06-26] MEDS: metoprolol succinate ER (24 HR) 25 mg Tablet 12.5 MG PO (08:27)
[2024-06-26] MEDS: losartan 50 mg Tablet 100 MG PO (08:27)
[2024-06-26] MEDS: aspirin 81 mg EC Tablet PO (08:27)
[2024-06-26] MEDS: FUROsemide 10 mg/mL SDV 2mL 20 MG IVP (08:38)
--- NOTE | 2024-06-26 10:28 | P.PN_ITS ---
Subjective 2 Subjective: Patient is going for angiogram tomorrow, most likely will be able to go home by No active chest pain Still has Nitropaste I have asked nurse to test this with cardiology to see if we can give him nitro free interval Given IV Lasix, requested chest x-ray Vitals/I&O/Wt Last Vital Signs Temp 98.4 F 06/26/24 07:29 Pulse 80 06/26/24 08:25 Resp 16 06/26/24 07:29 BP 138/70 06/26/24 08:27 Pulse Ox 97 06/26/24 07:29 O2 Del Method Room Air 06/26/24 07:29 06/25/24 06/26/24 06/26/24 22:59 06:59 14:59 Intake Total 120 / 240 360 / 360 Output Total 125 / 250 Balance -5 / -10 360 / 360 Weight last 48 hrs Weight 84.368 kg Weight 84.414 kg Weight 84.595 kg Physical Exam 2 Narrative: awake and alert Euvolemic GCS 15 Nonfocal neuroexam Nitropaste on Hemodynamically stable Pleasant cooperative No active chest pain Currently on room air however has crackles on lung auscultation right greater than left Data 06/26/24 04:34 06/26/24 04:34 A&P Assessment and plan (1) Hypertension: Qualifiers: Hypertension type: primary hypertension Qualified Code(s): I10 - Essential (primary) hypertension (2) NSTEMI (non-ST elevated myocardial infarction): (3) New onset a-fib: (4) Diabetes mellitus: (5) Hypothyroidism: Plan N.p.o. after midnight Chest pain-free Hemodynamically stable Going for staged procedure for multivessel disease Creatinine is normal Currently on room air Echo shows grade 2 diastolic function, given IV Lasix, right-sided lower base of the lung shows crackles on auscultation Attestations 2 Medical Necessity Statement*: Angiogram tomorrow Diagnoses Primary hypertension I10 Hypertension type: primary hypertension NSTEMI (non-ST elevated myocardial infarction) I21.4 New onset a-fib I48.91 Diabetes mellitus E11.9 Hypothyroidism E03.9
--- NOTE | 2024-06-26 11:01 | P.PN_ITS ---
Subjective 2 Subjective: Patient is doing well today. VSS. He is without chest pain at this time. He has remained NSR. Currently taking DAPT with aspirin and Plavix. Creatinine stable at 1.1, unchanged from previously. Right wrist puncture site clean, dry, intact w/o s/s of hematoma or pseudoaneurysm. He has no complaints at this time. Medications: Reviewed: Yes Vitals/I&O/Wt Last Vital Signs Temp 98.4 F 06/26/24 07:29 Pulse 80 06/26/24 08:25 Resp 16 06/26/24 07:29 BP 138/70 06/26/24 08:27 Pulse Ox 97 06/26/24 07:29 O2 Del Method Room Air 06/26/24 07:29 06/25/24 06/26/24 06/26/24 22:59 06:59 14:59 Intake Total 120 / 240 360 / 360 Output Total 125 / 250 Balance -5 / -10 360 / 360 Weight last 48 hrs Weight 186 lb Weight 186 lb Weight 186 lb 1.6 oz Weight 186 lb 8 oz Physical Exam 2 Narrative: GENERAL: Patient is alert, awake and oriented x3. NECK: No jugular vein distension. HEENT: No cyanosis. HEART: Regular S1 and S2. No murmur, rub or gallop. LUNGS: Clear to auscultate bilaterally. EXTREMITIES: Bilateral radials 2+, palpable 2+ PT bilaterally Data 06/26/24 04:34 06/26/24 04:34 A&P Assessment and plan (1) NSTEMI (non-ST elevated myocardial infarction): Patient doing well w/o chest pain. Patient is s/p left heart cath that showed proximal LAD 75% stenosed, RCA totally occluded, distal circumflex is subtotally occluded, OM1 70% stenosis and OM2 80% stenosis. Plan is to take patient to the dock or pier laborer tomorrow around 10. NPO after midnight. (2) New onset a-fib: Patient arrived in A-fib RVR but was given 2 doses of IV Cardizem and 250 mg IV digoxin. He was converted to normal sinus rhythm and has remained since. At this time we will continue aspirin and Plavix. Patient may need heart monitor in the future. Continue beta-eloise for now, he is on Lovenox for anticoagulation. (3) Hypertension: Well-controlled on the losartan and metoprolol Qualifiers: Hypertension type: primary hypertension Qualified Code(s): I10 - Essential (primary) hypertension Plan As stated above. Attestations 2 Medical Necessity Statement*: Patient require continuation hospitalization for above defined care Coding Level of Care Code Acute Code for [facility] Diagnoses NSTEMI (non-ST elevated myocardial infarction) I21.4 New onset a-fib I48.91 Primary hypertension I10 Hypertension type: primary hypertension
--- NOTE | 2024-06-26 11:40 | XR_ITS ---
WS: [id number] Exam: XR chest 2V* [id number] Date/Time of Exam: 06/26/2024 11:45 AM Reason For Exam: adventitious lung sounds No priors. The lungs are clear and fully expanded. Cardiomediastinal silhouette is unremarkable. No pleural effu sions. Bony structures are intact. Advanced spondylosis of the thoracic spine. XR/XR chest 2V* [id number] IMPRESSION: 1. No acute cardiopulmonary finding.
[2024-06-26 12:03] LABS: Glucose Point of Care 161 mg/dL (70-110)
[2024-06-26 17:23] LABS: Glucose Point of Care 164 mg/dL (70-110)
[2024-06-26] MEDS: atorvastatin 40 mg Tablet 80 MG PO (20:11)
[2024-06-26] MEDS: montelukast sodium 10 mg Tablet PO (20:11)
[2024-06-26] MEDS: doxazosin 4 mg Tablet PO (20:11)
[2024-06-26 20:49] LABS: Glucose Point of Care 202 mg/dL (70-110)
[2024-06-27] VITALS (13 sets, daily range): BP systolic 123–147; BP diastolic 61–92; PULSE 52–84; RESP 9–74; TEMP 36.4–37.6; O2SAT 93–96
[2024-06-27] MEDS: liothyronine 5 mcg Tablet PO (05:18)
[2024-06-27] MEDS: levothyroxine 200 mcg Tablet PO (05:18)
[2024-06-27 06:03] LABS: Blood Urea Nitrogen 16 mg/dL (8-23); Calcium 8.9 mg/dL (8.5-10.5); Carbon Dioxide 26 mmol/L (22-29); Chloride 101 mmol/L (98-107); Creatinine Clr Calc Pharmacy 68.9131; Glomerular Filtration Rate 66.6 mL/min (90-130); Glucose 174 mg/dL (65-115); Osmolality Calculated 293 mOsm/kg (285-295); Sodium 139 mmol/L (136-145)
[2024-06-27 06:29] LABS: Glucose Point of Care 162 mg/dL (70-110)
[2024-06-27] MEDS: isosorbide mononitrate 20 mg Tablet PO ×2 (08:41→17:18)
[2024-06-27] MEDS: losartan 50 mg Tablet 100 MG PO (08:41)
[2024-06-27] MEDS: aspirin 81 mg EC Tablet PO (08:41)
[2024-06-27] MEDS: metoprolol succinate ER (24 HR) 25 mg Tablet 12.5 MG PO (08:41)
[2024-06-27] MEDS: pantoprazole 40 mg SDV IVP (08:41)
[2024-06-27] MEDS: clopidogrel 75 mg Tablet PO (08:41)
[2024-06-27] MEDS: magnesium oxide 400 mg tablet PO (08:41)
--- NOTE | 2024-06-27 09:35 | PC.SOCIAL ---
IMM Update Pg. 2 of IMM updated and reviewed with patient, who verbalized understanding. Copy provided.
--- NOTE | 2024-06-27 10:07 | W.PM.OPSUD ---
Surgery/Procedure H&P Update DATE OF PROCEDURE: June 27, 2024 DATE H&P PERFORMED: 06/24/24 H&P UPDATE INFORMATION: I have reviewed H&P completed within last 30 days, I have examined patient prior to procedure and No changes to prior documentation CHANGES TO PREVIOUS DOCUMENTATION: 69-year-old male presented with non-ST elevation [place] atrial fibrillation, he was noted to have multivessel coronary artery disease he was referred for CABG patient turned down the CABG he understand risk-benefit and alternative for intervention percutaneously, he understand that CABG in case of FOURNIER is superior then the multiple stenting however he thinks that CABG will not suits with 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 He would like to proceed with stents, will today proceed with coronary angiogram/percutaneous angioplasty of LAD and circumflex. Patient has chronically occluded RCA we will manage it medically. Further plan will be devised as per progress the patient. Patient understand risk for stroke major bleed leading to transfusion more than 2%, he understand risk for contrast induced nephropathy hematoma infection bruising and pseudoaneurysm. He would like to proceed with it. PREOP DIAGNOSIS: Non-ST elevation PLANNED PROCEDURE: Operation Date: 06/24/24 10:30 Proposed Procedures p Cardiac Catheterization(Not Applicable) - Jenny Mcdermott MD Operation Date: 06/27/24 10:00 Proposed Procedures p Cardiac Catheterization(Left) - Jenny Mcdermott MD AIRWAY EVAL/ANESTHESIA PLAN: ASA II, Risks, benefits & alternatives of sedation and/or procedure discussed and Patient agrees to continue as planned ADDITIONAL INFORMATION: Mallampati 2
--- NOTE | 2024-06-27 10:38 | PC.NURSE ---
Patient left CSU for laboratory helper at 0930.
--- NOTE | 2024-06-27 12:55 | P.PN_ITS ---
Subjective 2 Subjective: This morning. No acute events overnight. Denies any chest pain at this time. Going for cath today. Vitals/I&O/Wt Last Vital Signs Temp 97.6 F 06/27/24 07:36 Pulse 52 L 06/27/24 12:30 Resp 15 06/27/24 12:30 BP 129/78 06/27/24 12:30 Pulse Ox 94 06/27/24 12:30 O2 Del Method Room Air 06/27/24 12:15 06/26/24 06/27/24 06/27/24 22:59 06:59 14:59 Intake Total 240 / 960 400 / 1360 Output Total 1100 / 1100 Balance 240 / 960 -700 / 260 Weight last 48 hrs Weight 83.461 kg Weight 84.368 kg Weight 84.368 kg Physical Exam 2 Narrative: GENERAL: Patient is alert, awake and oriented x3. NECK: No jugular vein distension. HEENT: No cyanosis. HEART: Regular S1 and S2. No murmur, rub or gallop. LUNGS: Clear to auscultate bilaterally. EXTREMITIES: Bilateral radials 2+, palpable 2+ PT bilaterally Data 06/26/24 04:34 06/27/24 04:25 A&P Assessment and plan (1) Hypertension: Qualifiers: Hypertension type: primary hypertension Qualified Code(s): I10 - Essential (primary) hypertension (2) NSTEMI (non-ST elevated myocardial infarction): (3) New onset a-fib: (4) Diabetes mellitus: (5) Hypothyroidism: Plan #Multivessel coronary artery disease. #Hypothyroidism #Diabetes mellitus #Atrial fibrillation #NSTEMI #Hypertension ? N.p.o. since midnight last night going for cardiac cath today for potential PCI. ? Chest pain-free today. Hemodynamically stable. Creatinine is normal. Currently on room air, family present at bedside ? Echo shows grade 2 diastolic dysfunction. 1100 urine output overnight. ? Plan to monitor in hospital today status post cath. ? Continue aspirin Plavix, therapeutic Lovenox Imdur 20 twice daily ? Full code DVT prophylaxis: On therapeutic Lovenox. Attestations 2 Medical Necessity Statement*: Cardiac cath today. Diagnoses Primary hypertension I10 Hypertension type: primary hypertension NSTEMI (non-ST elevated myocardial infarction) I21.4 New onset a-fib I48.91 Diabetes mellitus E11.9 Hypothyroidism E03.9
--- NOTE | 2024-06-27 13:04 | PC.NURSE ---
Patient returned to [facility] from labor delivery specialist at 1250. Patient came with a right groin sheath.
[2024-06-27 13:33] LABS: Glucose Point of Care 154 mg/dL (70-110)
[2024-06-27 15:05] LABS: Partial Thromboplastin Time 52.8 SECONDS (23.9-36.7)
[2024-06-27 16:12] LABS: Partial Thromboplastin Time 29.8 SECONDS (23.9-36.7)
[2024-06-27 17:00] LABS: Glucose Point of Care 185 mg/dL (70-110)
[2024-06-27] MEDS: insulin lispro 100 unit/1 mL SUBCUT ×2 (17:18→20:56)
[2024-06-27 20:47] LABS: Glucose Point of Care 246 mg/dL (70-110)
[2024-06-27] MEDS: atorvastatin 40 mg Tablet 80 MG PO (20:55)
[2024-06-27] MEDS: doxazosin 4 mg Tablet PO (20:55)
[2024-06-27] MEDS: montelukast sodium 10 mg Tablet PO (20:55)
[2024-06-28] VITALS: BP 121/70; PULSE 79; RESP 19; TEMP 36.6; O2SAT 92
[2024-06-28 04:00] VITALS: BP 129/68; PULSE 77; RESP 20; O2SAT 96
[2024-06-28] MEDS: liothyronine 5 mcg Tablet PO (05:33)
[2024-06-28] MEDS: levothyroxine 200 mcg Tablet PO (05:33)
[2024-06-28 05:40] LABS: Basophils % 0.4 %; Eosinophils # 0.4 10^3/uL (0.0-0.8); Eosinophils % 5.1 %; Hematocrit 39.5 % (37-53); Lymphocytes # 2.1 10^3/uL (0.8-4.8); Lymphocytes % 30.6 %; Mean Corpuscular HGB Conc 33.2 g/dL (30-55); Mean Corpuscular Volume 87.4 fl (82-101); Mean Platelet Volume 10.2 fL (7.4-10.4); Monocytes # 0.6 10^3/uL (0.2-0.9); Monocytes % 8.6 %; Neutrophils # 3.86 10^3/uL (1.8-7.7); Neutrophils % 55.2 %; Nucleated Red Blood Cells % 0 %; Platelet Count 195 10^3/cmm (157-399); Red Blood Count 4.52 10^6/uL (3.85-5.65); Red Cell Distribution Width 13.1 % (12.1-15.1)
[2024-06-28 06:00] VITALS: PULSE 68
[2024-06-28 06:04] LABS: Anion Gap 15.9 (5-19); Blood Urea Nitrogen 17 mg/dL (8-23); Calcium 8.6 mg/dL (8.5-10.5); Carbon Dioxide 25 mmol/L (22-29); Chloride 103 mmol/L (98-107); Creatinine Clr Calc Pharmacy 67.1978; Glomerular Filtration Rate 66.6 mL/min (90-130); Glucose 189 mg/dL (65-115); Osmolality Calculated 297 mOsm/kg (285-295); Potassium 3.9 mmol/L (3.5-5.1); Sodium 140 mmol/L (136-145)
[2024-06-28 06:33] LABS: Glucose Point of Care 210 mg/dL (70-110)
[2024-06-28 07:14] VITALS: BP 135/72; PULSE 74; RESP 18; TEMP 36.6; O2SAT 98
[2024-06-28] MEDS: enoxaparin 80 mg/0.8 mL Syringe SUBCUT (08:17)
[2024-06-28] MEDS: insulin lispro 100 unit/1 mL SUBCUT (08:18)
[2024-06-28 08:19] VITALS: BP 135/72
[2024-06-28] MEDS: pantoprazole 40 mg SDV IVP (08:19)
[2024-06-28] MEDS: losartan 50 mg Tablet 100 MG PO (08:19)
[2024-06-28] MEDS: aspirin 81 mg EC Tablet PO (08:19)
[2024-06-28] MEDS: isosorbide mononitrate 20 mg Tablet PO (08:19)
[2024-06-28] MEDS: magnesium oxide 400 mg tablet PO (08:20)
[2024-06-28] MEDS: metoprolol succinate ER (24 HR) 25 mg Tablet 12.5 MG PO (08:20)
[2024-06-28] MEDS: clopidogrel 75 mg Tablet PO (08:20)
--- NOTE | 2024-06-28 09:33 | P.DS_ITS ---
Discharge Providers Date of Admission: 06/23/24 20:56 Date of Discharge: June 28, 2024 Attending Provider at Admission: Mable Hayes MD Attending Provider at Discharge: Mable Hayes MD Primary Care Provider: Deshaun Alan Diagnoses at Discharge Discharge Diagnosis (1) Hypertension: Status: Acute Qualifiers: Hypertension type: primary hypertension Qualified Code(s): I10 - Essential (primary) hypertension (2) NSTEMI (non-ST elevated myocardial infarction): Status: Acute (3) New onset a-fib: Status: Acute (4) Diabetes mellitus: Status: Acute (5) Hypothyroidism: Status: Acute Reason for Visit Reason for Visit: Afib RVR Stemi Hospital Course Hospital Course Presented to the hospital for chest pain and was diagnosed with NSTEMI. Underwent cardiac catheterization found to have multivessel coronary artery disease and CABG was recommended. Patient did not want to proceed with surgery and therefore he was taken to [facility] again for PCI and 1 stent was placed in LAD. He will later need a staged intervention to possibly stent another vessel at a later time. Echo did show grade 2 diastolic dysfunction. He was continued on aspirin and Plavix and Imdur. He also had an episode of atrial fibrillation during hospitalization and was set up with an event monitor at discharge. 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 He would like to wait off on that at this time and until we review the results of the event monitor. He will discuss with cardiology as an outpatient regarding anticoagulation in the future. Will continue home on aspirin Plavix atorvastatin at this time Imdur was added, metoprolol succinate was added. Patient to follow-up with cardiology as an outpatient. Discussed with him to come back to the hospital if he has any chest pain. He was also seen by cardiology on day of discharge. I have asked cracking unit operator to call patient with appointment for the event monitor. Physical Exam Narrative: GENERAL: Patient is alert, awake and oriented x3. NECK: No jugular vein distension. HEENT: No cyanosis. HEART: Regular S1 and S2. No murmur, rub or gallop. LUNGS: Clear to auscultate bilaterally. EXTREMITIES: Bilateral radials 2+, palpable 2+ PT bilaterally Discharge Data Studies Completed and Pending Completed Studies During Hospitalization Category Date Time Status [employer]PL[employer] MACHINE [employer] request for service Routine Exams 06/24/24 10:13 Completed XR chest 2V* [id number] Routine Exams 06/26/24 11:40 Completed CV. 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 No acute cardiopulmonary finding. Laboratory Results WBC 7.00 10^3/uL (3.29-11.43) 06/28/24 05:08 RBC 4.52 10^6/uL (3.85-5.65) 06/28/24 05:08 Hgb 13.10 g/dL (11.27-16.99) 06/28/24 05:08 Hct 39.5 % (37-53) 06/28/24 05:08 MCV 87.4 fl (82-101) 06/28/24 05:08 MCH 29.0 pg (27-33) 06/28/24 05:08 MCHC 33.2 g/dL (30-55) 06/28/24 05:08 RDW 13.1 % (12.1-15.1) 06/28/24 05:08 Plt Count 195 10^3/cmm (157-399) 06/28/24 05:08 MPV 10.2 fL (7.4-10.4) 06/28/24 05:08 Neut % (Auto) 55.2 % 06/28/24 05:08 Lymph % (Auto) 30.6 % 06/28/24 05:08 Fountain % (Auto) 8.6 % 06/28/24 05:08 Eos % (Auto) 5.1 % 06/28/24 05:08 Baso % (Auto) 0.4 % 06/28/24 05:08 Neut # (Auto) 3.86 10^3/uL (1.8-7.7) 06/28/24 05:08 Lymph # (Auto) 2.1 10^3/uL (0.8-4.8) 06/28/24 05:08 Fountain # (Auto) 0.6 10^3/uL (0.2-0.9) 06/28/24 05:08 Eos # (Auto) 0.4 10^3/uL (0.0-0.8) 06/28/24 05:08 Baso # (Auto) 0.0 10^3/uL (0.0-0.1) 06/28/24 05:08 Nucleated RBC % (auto) 0 % 06/28/24 05:08 Nucleated RBCs # 0.0 /100WBC 06/28/24 05:08 PT 13.50 SECONDS (12.1-14.9) 06/23/24 22:08 INR 1.00 (0.8-1.2) 06/23/24 22:08 APTT 29.8 SECONDS (23.9-36.7) 06/27/24 15:50 Sodium 140 mmol/L (136-145) 06/28/24 05:08 Potassium 3.9 mmol/L (3.5-5.1) 06/28/24 05:08 Chloride 103 mmol/L (98-107) 06/28/24 05:08 Carbon Dioxide 25 mmol/L (22-29) 06/28/24 05:08 Anion Gap 15.9 (5-19) 06/28/24 05:08 BUN 17 mg/dL (8-23) 06/28/24 05:08 Creatinine 1.1 mg/dL (0.7-1.2) 06/28/24 05:08 GFR Calculation 66.6 mL/min (90-130) L 06/28/24 05:08 Glucose 189 mg/dL (65-115) H 06/28/24 05:08 POC Glucose 210 mg/dL (70-110) H 06/28/24 06:10 Estimat Average Glucose 200 06/24/24 04:02 Hemoglobin A1c 8.6 % (4.0-6.0) H 06/24/24 04:02 Calculated Osmolality 297 mOsm/kg (285-295) H 06/28/24 05:08 Lactic Acid 1.6 mmol/L (0.5-2.2) 06/23/24 22:08 Calcium 8.6 mg/dL (8.5-10.5) 06/28/24 05:08 Phosphorus 3.9 mg/dL (2.5-4.5) 06/24/24 04:02 Magnesium 1.8 mg/dL (1.7-2.3) 06/24/24 04:02 Iron 72 ug/dL (59-158) 06/23/24 22:08 TIBC 338 mcg/dl 06/23/24 22:08 % Saturation 21.3 % (20-50) 06/23/24 22:08 Unsat Iron Binding 266 ug/dL (112-347) 06/23/24 22:08 Total Bilirubin 0.2 mg/dL (0.15-1.2) 06/24/24 04:02 AST 25 U/L (0-40) 06/24/24 04:02 ALT 24 U/L (0-41) 06/24/24 04:02 Alkaline Phosphatase 53 U/L (40-130) 06/24/24 04:02 Troponin T Baseline 227 ng/L (0-15) H* 06/23/24 22:08 Troponin T 120 Minute 318.6 ng/L (0-15) H 06/23/24 00:06 Delta Troponin T 91.6 ABS# (0-10) H* 06/23/24 00:06 Troponin T Hi Sens 6Hr 437.7 ng/L (0-15) H 06/24/24 04:02 Troponin T Hi Sens 6Hr Delta 210.7 ng/L (0-12) H* 06/24/24 04:02 NT-Pro-B Natriuret Pep 348 pg/mL (0-125) H 06/23/24 22:08 Total Protein 6.4 g/dL (6.6-8.7) L 06/24/24 04:02 Albumin 3.8 g/dL (3.5-5.2) 06/24/24 04:02 Globulin 2.6 g/dL (1.3-4.6) 06/24/24 04:02 Triglycerides 191 mg/dL (0-150) H 06/24/24 04:02 Cholesterol 139 mg/dL (0-200) 06/24/24 04:02 LDL Cholesterol, Calc 74 mg/dL (50-129) 06/24/24 04:02 HDL Cholesterol 27 mg/dL (60-100) L 06/24/24 04:02 LDL/HDL Ratio 2.74 RATIO (0.00-3.22) 06/24/24 04:02 Cholesterol/HDL Ratio 5.15 mg/dL (1.0-5.00) H 06/24/24 04:02 Vitamin B12 353 pg/mL (232-1245) 06/23/24 22:08 Folate 9.9 ng/mL (4.5-32.2) 06/24/24 04:02 Procalcitonin 0.04 ng/mL (0-0.5) 06/24/24 04:02 TSH 0.12 uIU/mL (0.27-4.20) L 06/23/24 22:08 Free T4 1.41 ng/dL (0.82-1.77) 06/23/24 22:08 Urine Color Yellow (Yellow) 06/23/24 22:00 Urine Appearance Cloudy (CLEAR) A 06/23/24 22:00 Urine pH 5.5 (5-7) 06/23/24 22:00 Ur Specific [place] 1.016 (1.005-1.030) 06/23/24 22:00 Urine Protein Negative (Negative) 06/23/24 22:00 Urine Glucose (UA) Trace (Normal) H 06/23/24 22:00 Urine Ketones Trace (Negative) 06/23/24 22:00 Urine Blood Negative (Negative) 06/23/24 22:00 Urine Nitrate Negative (Negative) 06/23/24 22:00 Urine Bilirubin Negative (Negative) 06/23/24 22:00 Urine Urobilinogen 1.0 mg/dL (Negative) 06/23/24 22:00 Ur Leukocyte Esterase Negative (Negative) 06/23/24 22:00 Urine RBC 0-2 /hpf (0-2) 06/23/24 22:00 Urine WBC 0-5 /hpf (0-5) 06/23/24 22:00 Ur Squamous Epith Cells 0-5 /hpf (0-5) 06/23/24 22:00 Amorphous Sediment Not Reportable 06/23/24 22:00 Urine Bacteria None seen /hpf (NONE) 06/23/24 22:00 Hyaline Casts 0-4 /lpf H 06/23/24 22:00 Vitals Last Vital Signs Temp 97.9 F 06/28/24 07:14 Pulse 74 06/28/24 07:14 Resp 18 06/28/24 07:14 BP 135/72 06/28/24 08:19 Pulse Ox 98 06/28/24 07:14 O2 Del Method Room Air 06/28/24 07:14 Discharge Plan Discharge Patient Disposition: Home Condition: Stable Prescriptions: New atorvastatin 40 mg Tablet 80 mg PO BEDTIME Qty: 60 0RF isosorbide mononitrate 20 mg Tablet 20 mg PO BID Qty: 60 0RF clopidogrel 75 mg Tablet 75 mg PO DAILY Qty: 30 0RF metoprolol succinate 25 mg Tablet Extended Release 24 Hr 12.5 mg PO DAILY Qty: 15 0RF Continued liothyronine 5 mcg tablet 5 mcg PO QAM nycluagahk-gywoffllrfnuv-zsmd 50-325-40 mg tablet 1 - 2 tab PO BID PRN (Reason: Headache) doxazosin 4 mg tablet 4 mg PO BEDTIME montelukast 10 mg tablet 10 mg PO BEDTIME levothyroxine 200 mcg tablet 200 mcg PO QAM losartan 100 mg tablet 100 mg PO DAILY Slow-Mag 71.5 mg Tablet,Delayed Release (Dr/Ec) 400 mg PO DAILY Jardiance 10 mg tablet 10 mg PO DAILY aspirin 81 mg Tablet,Delayed Release (Dr/Ec) 81 mg PO DAILY Qty: 30 0RF Discontinued lovastatin 40 mg tablet 40 mg PO BEDTIME amlodipine 5 mg tablet 5 mg PO BID Discharge Orders: Discharge Order (Routine); Ordered 06/28/24 Ordered By: Mable Hayes Other Ambulatory Orders: MCT/Event Monitor 30 Days (Routine) Timeframe: 1 Day Facility: [facility] - Location: Radiology Ordered By: Mable Hayes Referrals: Jenny Mcdermott MD [Physician] - 09/12/24 2:00 pm Laquita Juarez FNP [Nurse Practitioner] - 07/05/24 11:30 am Discharge Diet: Cardiac and Diabetic Discharge Activity: Limit activity as instructed Patient Instructions: Isosorbide Dinitrate (By mouth), Metoprolol (By mouth), Atorvastatin (By mouth), Clopidogrel (By mouth), Hypertension, Heart Attack (DC), A-fib (Atrial Fibrillation) (DC), Coronary Angioplasty (DC), Opioid Safety Discharge Attestations Time Spent in Discharge Care*: greater than 30 min Quality Metrics Clinical Quality Measures [ No reported AMI, CVA or VTE this stay] Coding Level of Care Code Acute Code for [facility] Fwd Diagnoses Primary hypertension I10 Hypertension type: primary hypertension NSTEMI (non-ST elevated myocardial infarction) I21.4 New onset a-fib I48.91 Diabetes mellitus E11.9 Hypothyroidism E03.9
[2024-06-28 10:57] VITALS: BP 114/74; PULSE 78; RESP 21; O2SAT 96
--- NOTE | 2024-06-28 11:05 | P.PN_ITS ---
Subjective 2 Subjective: Patient doing well today with no complaints. He is s/p angiogram. Groin site on the right clean dry intact no signs or symptoms of hematoma. Denies leg pain. Denies chest pain or shortness of breath. Overall he is doing well without complaints. Denies palpitations. Medications: Reviewed: Yes Vitals/I&O/Wt Last Vital Signs Temp 97.9 F 06/28/24 07:14 Pulse 78 06/28/24 10:57 Resp 21 H 06/28/24 10:57 BP 114/74 06/28/24 10:57 Pulse Ox 96 06/28/24 10:57 O2 Del Method Room Air 06/28/24 07:14 06/27/24 06/28/24 06/28/24 22:59 06:59 14:59 Intake Total 240 / 360 360 / 360 Output Total 925 / 925 Balance -685 / -565 360 / 360 Weight last 48 hrs Weight 173 lb 9.6 oz Weight 184 lb Physical Exam 2 Narrative: General: No apparent distress, healthy appearing, well nourished Neck: No carotid bruit bilaterally Muskuloskeletal: Full ROM Respiratory: Normal respiratory effort, clear to auscultation bilaterally throughout all lung morales, no use of accessory muscles Cardio: No JVD, regular rate, regular rhythm, S1 S2 normal, no murmurs, peripheral pulses 2+ throughout palpated DP PT and radials bilaterally Extremities: Full ROM, normal, normal capillary refill, no cyanosis or edema Neuro: Alert and oriented x4, no focal motor deficits Psych: Affect normal, denies suicidal ideation, mental status grossly normal Skin: No rashes or lesions noted, right groin puncture site and wrist puncture site clean dry intact soft no signs or symptoms of hematoma or evidence of pseudoaneurysm Data 06/28/24 05:08 06/28/24 05:08 A&P Assessment and plan (1) Hypertension: Well-controlled on the losartan and metoprolol Qualifiers: Hypertension type: primary hypertension Qualified Code(s): I10 - Essential (primary) hypertension (2) NSTEMI (non-ST elevated myocardial infarction): Patient doing well w/o chest pain. Patient is s/p left heart cath. (3) New onset a-fib: Patient arrived in A-fib RVR but was given 2 doses of IV Cardizem and 250 mg IV digoxin. He was converted to normal sinus rhythm and has remained since. At this time we will continue aspirin and Plavix. Patient rate has been well controlled. Will discharge on a holter monitor. Continue beta-eloise for now. Plan Discussed plan with patient and hospitalist. Coding Level of Care Code Acute Code for [facility] Fwd Diagnoses Primary hypertension I10 Hypertension type: primary hypertension NSTEMI (non-ST elevated myocardial infarction) I21.4 New onset a-fib I48.91
--- NOTE | 2024-06-28 14:05 | PC.NURSE ---
Patients right femoral sheath was removed on 06/27/2024. Manual pressure was held x 20 minutes. Hemostasis was obtained right away after pulling the sheath. No hemotoma was noted. Patient tolerated well. Patient was educated that he must leave his right leg straight and not sit up until 2300. Patient states understanding.
== END 2024-06-28 11:41 | disposition home or self-care (01) | DRG 322 ==
PROVIDERS: Internal Medicine; Internal Medicine Cardiovascular Disease; Student in an Organized Health Care Education/Training Program; Admitting Provider Internal Medicine; PCP Family Medicine; Visit Provider Internal Medicine
PROC: 027034Z Dilation of Coronary Artery, One Artery with Drug-eluting Intraluminal Device, Percutaneous Approach (ICD-10-PCS; principal; 2024-06-27 10:00)
DX: I21.4 Non-ST elevation (NSTEMI) myocardial infarction (principal); I10 Essential (primary) hypertension; E11.9 Type 2 diabetes mellitus without complications; E03.9 Hypothyroidism, unspecified; I48.91 Unspecified atrial fibrillation; Z79.82 Long term (current) use of aspirin; I25.10 Atherosclerotic heart disease of native coronary artery without angina pectoris; Z79.02 Long term (current) use of antithrombotics/antiplatelets; Z79.84 Long term (current) use of oral hypoglycemic drugs
CPT/HCPCS: 36415; 36416; 71046; 80048; 80053; 80061; 81001; 82607; 82746; 82962; 83036; 83540; 83550; 83605; 83735; 83880; 84100; 84145; 84439; 84443; 84484; 85025; 85049; 85347; 85610; 85730; 90686; 93005; 93306; 93458; 94664; 96372; 96374; 96375; 96376; 99152; 99153; A9270; C1725; C1769; C1874; C1887; C1894; C9600; J1200; J1644; J1650; J1815; J1940; J2250; J2470; J3010; J3490; J7030; J7050; Q9967

== ENCOUNTER → 2024-07-05 11:24 | Outpatient (BNVA) | payer MEDICARE, SELFPAY | PROVIDERS: PCP Family Medicine; Visit Provider Nurse Practitioner Family | DX: I48.91 Unspecified atrial fibrillation (principal); I10 Essential (primary) hypertension; R06.02 Shortness of breath; R07.9 Chest pain, unspecified; I25.10 Atherosclerotic heart disease of native coronary artery without angina pectoris; I25.2 Old myocardial infarction; K21.9 Gastro-esophageal reflux disease without esophagitis; Z87.891 Personal history of nicotine dependence | CPT/HCPCS: 36415; 80048; 83880; 99214 ==

== ENCOUNTER 2024-07-12 18:42 | Inpatient (IN) | payer MEDICARE, SELFPAY ==
--- NOTE | 2024-07-12 16:53 | USCV_ITS ---
Daniel Jaramillo Age: 69 Gender: M : 1955 Exam Date: 07/12/2024 18:53 Ordering Phys: Mable Hayes MD Technologist: STEPHANIE Exam Location: [facility] [place] Indication: chest pain, nstemi BP: 141 / 83 HR: 79 Rhythm: Atrial fibrillation , irregular rhythm Technical Quality: Adequate MEASUREMENTS (Male / Female) Normal Values 2D ECHO LV Diastolic Diameter PLAX 4.7 cm 4.2 - 5.9 / 3.9 - 5.3 cm IVS Diastolic Thickness 1.5 cm 0.6 - 1.0 / 0.6 - 0.9 cm IVS Systolic Thickness 2.3 cm LVPW Diastolic Thickness 1.2 cm 0.6 - 1.0 / 0.6 - 0.9 cm LVPW Systolic Thickness 1.7 cm LVOT Diameter 1.6 cm LV Ejection Fraction 2D Teich 63.1 % LV Ejection Fraction MOD 4C 61.7 % LV Ejection Fraction MOD 2C 46.5 % LV Ejection Fraction 2C AL 46.8 % LA Diameter 5.0 cm LA Sys Volume AL 70.6 cm cubed LA Sys Volume Index AL 34.0 cm cubed/m squared Aorta at Sinotubular Diameter 3.1 cm IVC Diameter 1.9 cm M-MODE LA Ao Ratio MM 1.5 AV Cusp Separation MM 2.1 cm DOPPLER AV Peak Velocity 111.0 cm/s LVOT Peak Velocity 123.0 cm/s AV Area Cont Eq vti 1.9 cm squared AV Area Cont Eq pk 2.2 cm squared MV Peak Velocity 98.7 cm/s MV Area PHT 3.3 cm squared Mitral E to A Ratio 0.0 TV Peak Velocity 262.7 cm/s TR Peak Velocity 270.0 cm/s TR Peak Gradient 29.2 mmHg TV Peak E Velocity 73.0 cm/s Right Atrial Pressure 3.0 mmHg Pulmonary Artery Systolic Pressu 32.2 mmHg PV Peak Velocity 116.0 cm/s FINDINGS Left Ventricle Normal left ventricular size, systolic function and wall thickness, with no regional wall motion abnormalities. Left ventricular ejection fraction is estimated at 55%. Grade II/IV diastolic dysfunction, moderately elevated filling pressures. Right Ventricle The right ventricle is normal in size and function. Right Atrium The right atrium is normal in size. Left Atrium Moderately increased left atrial size. Mitral Valve Moderately thickened mitral valve. No mitral valve stenosis. Moderate mitral valve regurgitation. Aortic Valve Moderate aortic valve calcification. Mild aortic valve stenosis, mean gradient 2.3 mmHg, KEYON 1.9 cm squared. Trace aortic valve regurgitation. Tricuspid Valve Trace tricuspid valve regurgitation. Pulmonic Valve Trace pulmonary valve regurgitation. Pericardium Normal pericardium without effusion. Aorta Normal ascending aorta dimension. IVC The inferior vena cava appears normal. CONCLUSIONS Normal left ventricular size, systolic function and wall thickness, with no regional wall motion abnormalities. Left ventricular ejection fraction is estimated at 55%. Grade II/IV diastolic dysfunction, moderately elevated filling pressures. Moderately thickened mitral valve. No mitral valve stenosis. Moderate mitral valve regurgitation. Moderately increased left atrial size. Moderate aortic valve calcification. Mild aortic valve stenosis, mean gradient 2.3 mmHg, KEYON 1.9 cm squared. Trace aortic valve regurgitation. There is no pericardial effusion. Pulmonary artery systolic pressure is within normal limits. Right atrial pressure is around 5 mm of mercury. Jenny Mcdermott MD (Electronically Signed) Final Date: 12 July 2024 21:37 S
[2024-07-12 19:14] VITALS: BMI 28.5
[2024-07-12 19:24] VITALS: BP 132/92; PULSE 89; RESP 16; TEMP 36.8; O2SAT 97
--- NOTE | 2024-07-12 19:46 | P.HP_ITS ---
Providers/Chief Complaint Admitting Physician: Mable Hayes MD Primary Care Provider: Deshaun Alan Chief Complaint: Afib History of Present Illness Daniel Jaramillo is a 69 year old male who was recently discharged in the hospital after management of non-STEMI, Dr. Morrissey was consulted patient went for cardiac cath status post PCI to LAD patient has multivessel disease decided against CABG he was discharged on aspirin and Plavix along Imdur presented with chief complaint of worsening of chest pain. Patient was discharged on event monitor for concern related to A-fib he follow-up with cardiology clinic there was no episode of rapid heart rate or any symptoms. He is not on any anticoagulating agent. 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 He has been compliant with his medications, does not smoke or drink alcohol stays physically active. Patient is stating that if CABG is needed he will go for it Review of Systems Const: Denies: fever(s) Eyes: Denies: change in vision ENMT: Denies: throat pain Card: Reports: chest pain Resp: Reports: dyspnea Medications/Allergies Home Medications Medication Instructions Recorded Confirmed Last Taken Type eqvulzmqeo-cymxvpssxmmsy-sdxgcwun 1 - 2 tab PO BID PRN Headache 06/23/24 07/05/24 Unknown History 50 mg-325 mg-40 mg tablet doxazosin 4 mg tablet 4 mg PO BEDTIME 06/23/24 07/05/24 Unknown History empagliflozin 10 mg tablet 10 mg PO DAILY 06/23/24 07/05/24 Unknown History (Jardiance) levothyroxine 200 mcg tablet 200 mcg PO QAM 06/23/24 07/05/24 Unknown History liothyronine 5 mcg tablet 5 mcg PO QAM 06/23/24 07/05/24 Unknown History losartan 100 mg tablet 100 mg PO DAILY 06/23/24 07/05/24 Unknown History magnesium chloride 71.5 mg 400 mg PO DAILY 06/23/24 07/05/24 Unknown History (magnesium chloride) tablet,delayed release (Slow-Mag) montelukast 10 mg tablet 10 mg PO BEDTIME 06/23/24 07/05/24 Unknown History aspirin 81 mg tablet,delayed 81 mg PO DAILY #30 tabs 06/28/24 07/05/24 Unknown Rx release atorvastatin 40 mg tablet 80 mg (2 x 40 mg) PO BEDTIME #60 06/28/24 07/05/24 Unknown Rx tabs clopidogrel 75 mg tablet 75 mg PO DAILY #30 tabs 06/28/24 07/05/24 Unknown Rx isosorbide mononitrate 20 mg tablet 20 mg PO BID #60 tabs 06/28/24 07/05/24 Unknown Rx metoprolol succinate 25 mg 12.5 mg (1/2 x 25 mg) PO DAILY #15 06/28/24 07/05/24 Unknown Rx tablet,extended release 24 hr tabs Allergies Allergy/AdvReac Type Severity Reaction Status Date / Time banana Allergy ALGY-Anaphy Verified 07/05/24 11:31 laxis codeine Allergy ALGY-Hives Verified 07/05/24 11:31 duck eggs Allergy ADR-Cramping Uncoded 07/05/24 11:31 of the Muscles PFSH Acute PFSH: Medical History (Updated 07/12/24 @ 20:25 by Jenny Malik MD) New onset a-fib Wearing Holter monitor currently in sinus rhythm Hypothyroidism Diabetes mellitus Coronary artery disease Social History Smoking and tobacco/nicotine status: former use of tobacco/nicotine Vitals/I&O/Wt Last Vital Signs Temp 98.2 F 07/12/24 19:24 Pulse 89 07/12/24 19:24 Resp 16 07/12/24 19:24 BP 132/92 07/12/24 19:24 Pulse Ox 97 07/12/24 19:24 O2 Del Method Room Air 07/12/24 19:24 Physical Exam Narrative: Pleasant cooperative Laying supine Euvolemic S1, S2 with PVCs Awake and alert After chest pain No audible stridor or wheezing Nonfocal neuroexam Hemodynamically stable Appears stated age A&P Assessment and plan (1) Hypertension: Qualifiers: Hypertension type: primary hypertension Qualified Code(s): I10 - Essential (primary) hypertension (2) Coronary artery disease: (3) Unstable angina: Plan Unstable angina Established coronary disease multivessel disease on previous cath I will let patient eat until midnight Start aspirin and Plavix Continue heparin drip No active chest pain Dr. Mcdermott consulted he is aware Continue metoprolol and losartan Patient is compliant with his medications Patient is stating that if CABG is needed he will go for it N.p.o. 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
--- NOTE | 2024-07-12 20:20 | ECG_ITS ---
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
[2024-07-12] MEDS: pantoprazole 40 mg SDV IVP (21:10)
[2024-07-12] MEDS: aspirin 81 mg EC Tablet PO (21:10)
[2024-07-12] MEDS: clopidogrel 75 mg Tablet PO (21:10)
[2024-07-12] MEDS: atorvastatin 40 mg Tablet 80 MG PO (21:10)
[2024-07-12] MEDS: heparin 5,000 unit/mL INJ 1 mL IVP (21:11)
[2024-07-12] MEDS: heparin drip 25,000 UNIT/500 ML PREMIX 25 UNIT IV (21:11)
[2024-07-12 22:00] VITALS: PULSE 100
[2024-07-12 22:32] LABS: Basophils % 0.5 %; Eosinophils # 0.4 10^3/uL (0.0-0.8); Eosinophils % 5.2 %; Hematocrit 38.2 % (37-53); Lymphocytes # 2.3 10^3/uL (0.8-4.8); Lymphocytes % 29.5 %; Mean Corpuscular HGB Conc 33.8 g/dL (30-55); Mean Corpuscular Hemoglobin 29.2 pg (27-33); Mean Corpuscular Volume 86.4 fl (82-101); Mean Platelet Volume 10.5 fL (7.4-10.4); Monocytes # 0.5 10^3/uL (0.2-0.9); Monocytes % 6.5 %; Neutrophils # 4.57 10^3/uL (1.8-7.7); Nucleated Red Blood Cells % 0 %; Platelet Count 203 10^3/cmm (157-399); Red Blood Count 4.42 10^6/uL (3.85-5.65); Red Cell Distribution Width 13.3 % (12.1-15.1); White Blood Count 7.87 10^3/uL (3.29-11.43)
[2024-07-12 22:51] LABS: Troponin(5th) Baseline 155 ng/L (0-15)
[2024-07-12 22:53] LABS: Potassium 3.7 mmol/L (3.5-5.1)
--- NOTE | 2024-07-12 22:54 | ECG_ITS ---
[facility]13 Pat Name: Daniel Jaramillo Department: Room: 104 Gender: Male Critical Care Registered Nurse: : 1955 Requested By: Mable Hayes Order Number: [id number] Rossy MD: Ramon Rubio M.D. Measurements Intervals [place] Rate: 98 P: 0 MI: 0 QRS: 42 QRSD: 140 T: 6 QT: 380 QTc: 486 Interpretive Statements ATRIAL FIBRILLATION INDETERMINATE AXIS RIGHT BUNDLE BRANCH BLOCK [120+ ms QRS DURATION, UPRIGHT V1, 40+ ms S IN I/aVL/V4/V5/V6] Compared to ECG 07/12/2024 20:20:39 Indeterminate axis now present Electronically Signed On 07-13-2024 18:20:02 MOTORCYCLE TECHNICIAN by Ramon Rubio M.D. [email or web address]
[2024-07-12 23:14] LABS: Alanine Aminotransferase 18 U/L (0-41); Albumin Level 3.8 g/dL (3.5-5.2); Alkaline Phosphatase 61 U/L (40-130); Anion Gap 15.7 (5-19); Aspartate Amino Transferase 23 U/L (0-40); Blood Urea Nitrogen 13 mg/dL (8-23); Calcium 8.5 mg/dL (8.5-10.5); Carbon Dioxide 23 mmol/L (22-29); Chloride 106 mmol/L (98-107); Creatinine Clr Calc Pharmacy 77.4712; Globulin 2.7 g/dL (1.3-4.6); Glomerular Filtration Rate 74.3 mL/min (90-130); Glucose 168 mg/dL (65-115); NT Pro B Type Natriuretic Pept 2135 pg/mL (0-125); Osmolality Calculated 296 mOsm/kg (285-295); Sodium 141 mmol/L (136-145); Thyroid Stimulating Hormone 0.07 uIU/mL (0.27-4.20); Total Bilirubin 0.3 mg/dL (0.15-1.2); Total Protein 6.5 g/dL (6.6-8.7)
[2024-07-13] VITALS (12 sets, daily range): BP systolic 107–131; BP diastolic 57–91; PULSE 60–99; RESP 16–22; TEMP 36.6–37; O2SAT 94–97
--- NOTE | 2024-07-13 00:20 | CTR_ITS ---
PROCEDURE INFORMATION: Exam: CTA Chest With Contrast Exam date and time: 07/13/2024 5:30 AM Age: 69 years old Clinical indication: Pain; Chest pressure; Additional info: R/O pe TECHNIQUE: Imaging protocol: Computed tomographic angiography of the chest with contrast. Exam focused on the arteries. 3D rendering (Not supervised by radiologist): MIP and/or 3D reconstructed images were created by the technologist. Radiation optimization: All CT scans at this facility use at least one of these dose optimization techniques: automated exposure control; mA and/or kV adjustment per patient size (includes targeted exams where dose is matched to clinical indication); or iterative reconstruction. Contrast material: OMNI 350; Contrast volume: 100 ml; Contrast route: INTRAVENOUS (IV); COMPARISON: CR XR chest 2V* [id number] 06/26/2024 11:51 AM RADIATION DOSE METRICS: Total DLP (mGy-cm): 439.32 FINDINGS: Pulmonary arteries: Normal. No pulmonary emboli. Aorta: The aorta is normal in caliber without aneurysm. There is calcified plaque involving the aorta and coronary vessels. The aorta is not opacified to the extent necessary to evaluate for an aortic dissection. Lungs: There is minimal atelectasis at the lung bases. There is mild septal thickening bilaterally. Findings could be related to mild edema. There is also diffuse bronchial wall thickening involving the upper and lower lobes bilaterally. This can be seen with edema as well. Other possible etiologies would include a bronchitis or respiratory bronchiolitis. There are a few opacified lower lobe bronchi as well. No focal consolidation is appreciated. Somewhat subtle emphysematous changes are noted involving both lungs. Pleural spaces: There are small bilateral pleural effusions. Heart: Unremarkable. No cardiomegaly. No pericardial effusion. Lymph nodes: There are numerous small as well as slightly enlarged mediastinal and hilar lymph nodes. Bones/joints: Unremarkable. No acute fracture. Soft tissues: Unremarkable. CT/CT angio chest PE protcl [id number] IMPRESSION: 1. Small pleural effusions with septal thickening and bronchial wall thickening. Findings most compatible with mild edema. There could be a component of bronchitis or respiratory bronchiolitis. 2. There are numerous small as well as slightly enlarged mediastinal and hilar lymph nodes. Findings are somewhat more numerous than generally expected on a reactive basis. Pulmonary referral may be of benefit for further appropriate workup/follow-up. COMMENTS: The presence of pulmonary emphysema on CT is an independent risk factor for lung cancer. In the absence of a history or active diagnosis of lung cancer, it is recommended that this patient with emphysema be evaluated for enrollment in a low dose CT lung cancer screening program.
[2024-07-13 00:52] LABS: Troponin 5 2HR 184.1 ng/L (0-15); Troponin 5 2HR Delta 29.1 ABS# (0-10)
[2024-07-13 04:01] LABS: Basophils # 0.1 10^3/uL (0.0-0.1); Basophils % 0.6 %; Eosinophils # 0.4 10^3/uL (0.0-0.8); Hematocrit 38.1 % (37-53); Lymphocytes # 2.4 10^3/uL (0.8-4.8); Lymphocytes % 28.3 %; Mean Corpuscular HGB Conc 33.6 g/dL (30-55); Mean Corpuscular Hemoglobin 29.7 pg (27-33); Mean Corpuscular Volume 88.4 fl (82-101); Mean Platelet Volume 10.1 fL (7.4-10.4); Monocytes # 0.6 10^3/uL (0.2-0.9); Monocytes % 7.1 %; Neutrophils # 4.88 10^3/uL (1.8-7.7); Neutrophils % 58.6 %; Nucleated Red Blood Cells % 0 %; Platelet Count 187 10^3/cmm (157-399); Red Blood Count 4.31 10^6/uL (3.85-5.65); Red Cell Distribution Width 13.3 % (12.1-15.1); White Blood Count 8.33 10^3/uL (3.29-11.43)
[2024-07-13 04:32] LABS: Partial Thromboplastin Time 91.5 SECONDS (23.9-36.7)
[2024-07-13 04:33] LABS: Alanine Aminotransferase 17 U/L (0-41); Albumin Level 3.7 g/dL (3.5-5.2); Alkaline Phosphatase 54 U/L (40-130); Aspartate Amino Transferase 20 U/L (0-40); Blood Urea Nitrogen 13 mg/dL (8-23); Calcium 8.2 mg/dL (8.5-10.5); Carbon Dioxide 23 mmol/L (22-29); Chloride 107 mmol/L (98-107); Globulin 2.1 g/dL (1.3-4.6); Glomerular Filtration Rate 74.3 mL/min (90-130); Glucose 169 mg/dL (65-115); Magnesium 1.6 mg/dL (1.7-2.3); Osmolality Calculated 298 mOsm/kg (285-295); Sodium 142 mmol/L (136-145); Total Bilirubin 0.4 mg/dL (0.15-1.2); Total Protein 5.8 g/dL (6.6-8.7)
[2024-07-13 04:41] LABS: Troponin 5 6HR 265.6 ng/L (0-15); Troponin 5 6HR Delta 110.6 ng/L (0-12)
[2024-07-13] MEDS: iohexol 350 mg/mL 500 mL Btl (per mL) IV (05:38)
[2024-07-13] MEDS: levothyroxine 200 mcg Tablet PO (05:54)
[2024-07-13] MEDS: losartan 50 mg Tablet 100 MG PO (08:07)
[2024-07-13] MEDS: metoprolol succinate ER (24 HR) 25 mg Tablet 12.5 MG PO (08:07)
[2024-07-13] MEDS: magnesium sulfate premix 2 GM/50 ML PIGGYBACK IV (08:23)
[2024-07-13] MEDS: clopidogrel 75 mg Tablet PO (08:24)
[2024-07-13] MEDS: aspirin 81 mg EC Tablet PO (08:24)
[2024-07-13] MEDS: isosorbide mononitrate 20 mg Tablet PO ×2 (08:24→17:15)
--- NOTE | 2024-07-13 08:58 | PC.SOCIAL ---
IMM Update pg 2 of IMM Updated and reviewed w/ patient. Copy provided and copy dated, initialed and placed in chart.
--- NOTE | 2024-07-13 09:17 | P.CONIM_ITS ---
Providers/Reason For Consult 2 Consulting Physician/Specialty*: Dr. Rubio/cardiology Reason for Consult*: NSTEMI/atrial fibrillation Requesting Physician: Dr. Richards Attending Physician: Robert Richards MD Primary Care Provider: Deshaun Alan History of Present Illness History of Present Illness Daniel Jaramillo is a 69 year old male with a recently, Jun 2024, diagnosed triple- vessel disease the, patient was managed with PCI of LAD as patient categorically refused CABG. There was also a concern of possible paroxysmal atrial fibrillation. Recently Holter monitor also showed runs of atrial fibrillation. 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 He also felt bit of irregularity and fast heartbeat. On admission EKG showed atrial fibrillation, nonspecific ST changes. Currently patient is in sinus rhythm The cardiac troponins and subsequent elevated, NSTEMI. Currently patient is asymptomatic. He has been managed with IV heparin and oral nitro. He is currently chest pain-free. Clinically no signs symptoms suggestive of heart failure. I reviewed his recent cardiac cath from 3 weeks ago. The LAD was stented in the proximal segment. He has severe disease in the LCx/RCA and both lesions are not good target for percutaneous angioplasty. Review of Systems 2 Narrative: Detailed 10 point systemic review unremarkable except for as mentioned above in the history of present illness. Medications/Allergies Home Medications Medication Instructions Recorded Confirmed Last Taken Type [id number]-syixczjyedmkb-qzyseoem 1 - 2 tab PO BID PRN Headache 06/23/24 07/13/24 Unknown History 50 mg-325 mg-40 mg tablet doxazosin 4 mg tablet 4 mg PO BEDTIME 06/23/24 07/13/24 07/12/24 History levothyroxine 200 mcg tablet 200 mcg PO QAM 06/23/24 07/13/24 07/12/24 History liothyronine 5 mcg tablet 5 mcg PO QAM 06/23/24 07/13/24 07/12/24 History losartan 100 mg tablet 100 mg PO DAILY 06/23/24 07/13/24 07/12/24 History montelukast 10 mg tablet 10 mg PO BEDTIME 06/23/24 07/13/24 07/11/24 History atorvastatin 40 mg tablet 80 mg (2 x 40 mg) PO BEDTIME #60 06/28/24 07/13/24 07/11/24 Rx tabs clopidogrel 75 mg tablet 75 mg PO DAILY #30 tabs 06/28/24 07/13/24 07/12/24 Rx isosorbide mononitrate 20 mg tablet 20 mg PO BID #60 tabs 06/28/24 07/13/24 07/12/24 Rx metoprolol succinate 25 mg 12.5 mg (1/2 x 25 mg) PO DAILY #15 06/28/24 07/13/24 07/12/24 Rx tablet,extended release 24 hr tabs aspirin 81 mg tablet,delayed 81 mg PO QAM 07/13/24 07/13/24 07/12/24 History release magnesium oxide 400 mg PO DAILY 07/13/24 07/13/24 07/11/24 History omeprazole magnesium 20 mg 20 mg PO DAILY 07/13/24 07/13/24 07/12/24 History tablet,delayed release (Prilosec OTC) Allergies Allergy/AdvReac Type Severity Reaction Status Date / Time banana Allergy ALGY-Anaphy Verified 07/05/24 11:31 laxis codeine Allergy ALGY-Hives Verified 07/05/24 11:31 duck eggs Allergy ADR-Cramping Uncoded 07/05/24 11:31 of the Muscles Current Medications Generic Name Dose Route Start Last Admin Trade Name Freq PRN Reason Stop Dose Admin Aspirin 81 mg 07/12/24 16:55 07/13/24 08:24 Aspirin 81 Mg Ec Tablet PO 81 mg DAILY DERREK Administration Atorvastatin Calcium 80 mg 07/12/24 21:00 07/12/24 21:10 Atorvastatin 40 Mg Tablet PO 80 mg BEDTIME DERREK Administration Clopidogrel Bisulfate 75 mg 07/12/24 16:55 07/13/24 08:24 Clopidogrel 75 Mg Tablet PO 75 mg DAILY DERREK Administration Heparin Sodium/Sodium Chloride 25,000 unit in 500 mls @ 0 mls/hr 07/12/24 17:00 07/13/24 05:54 Heparin Drip IV 12.55 unit/kg/hr CONT DERREK 22 mls/hr Titration Protocol Per Protocol Isosorbide Mononitrate 20 mg 07/13/24 09:00 07/13/24 08:24 Isosorbide Mononitrate 20 Mg Tablet PO 20 mg BID DERREK Administration Levothyroxine Sodium 200 mcg 07/13/24 06:00 07/13/24 05:54 Levothyroxine 200 Mcg Tablet PO 200 mcg QAM DERREK Administration Losartan Potassium 100 mg 07/13/24 09:00 07/13/24 08:07 Losartan 50 Mg Tablet PO 100 mg DAILY DERREK Administration Metoprolol Succinate 12.5 mg 07/13/24 09:00 07/13/24 08:07 Metoprolol Succinate Er (24 Hr) 25 Mg Tablet PO 12.5 mg DAILY DERREK Administration Pantoprazole Sodium 40 mg 07/12/24 17:00 07/12/24 21:10 Pantoprazole 40 Mg Sdv IVP 40 mg Q24H DERREK Administration PFSH Acute 2 PFSH: Medical History (Updated 07/13/24 @ 09:27 by Ramon Rubio MD) New onset a-fib Wearing Holter monitor currently in sinus rhythm Hypothyroidism Diabetes mellitus Coronary artery disease Social History Smoking and tobacco/nicotine status: former use of tobacco/nicotine Vitals/I&O/Wt Last Vital Signs Temp 98.4 F 07/13/24 07:48 Pulse 67 07/13/24 07:48 Resp 22 H 07/13/24 07:48 BP 120/61 07/13/24 08:07 Pulse Ox 95 07/13/24 07:48 O2 Del Method Room Air 07/13/24 07:48 07/12/24 07/13/24 07/13/24 22:59 06:59 14:59 Intake Total 217.917 / 217.917 Balance 217.917 / 217.917 Weight last 48 hrs Weight 193 lb 8 oz Weight 193 lb 3 oz Physical Exam 2 Narrative: Patient is sitting comfortably on his bed. He is not in any respiratory distress. His vitals are stable. Const: COMMON NORMALS: no acute distress, patient oriented x3, healthy appearing and alert Eye: OTHER: Normal Chest: OTHER: Normal chest. Normal breathing pattern. No tenderness across the chest. Resp: OTHER: Good air entry on auscultation bilaterally. No added sounds. Cardio: OTHER: Regular rate and rhythm currently, sinus rhythm. Normal first and second heart sounds. No JVD. GI: OTHER: Soft nontender abdomen. Bowel sounds audible. Extremity: NARRATIVE EXTREMITY EXAM: No lower extremity edema. Neuro: COMMON NORMALS: patient oriented x3 SENSORIUM/ORIENTATION: Yes alert OTHER: Grossly intact. Patient moving all 4 limbs. Skin: NARRATIVE SKIN EXAM: Skin warm and dry. Data 07/13/24 03:40 07/13/24 03:40 A&P Assessment and plan (1) New onset a-fib: 69-year-old male patient with extensive cardiac history, angiography last month show triple-vessel disease, to refusal for CABG patient had an LAD stented. Now admitted with chest pain and atrial fibrillation. Cardiac enzymes elevated, NSTEMI. Currently patient is asymptomatic. He is back in sinus rhythm. No further angina or any heart failure symptoms. Vitals are stable. I reviewed his cardiac cath and angioplasty procedure in detail. CABG was the better option which was offered to patient and after his refusal LAD was stented. In my assessment the complex diffuse disease in LCx and RCA is not suitable targets for percutaneous intervention. Considering currently stable cardiac status, no heart failure symptoms I recommend optimize medical management at this stage. With the paroxysmal atrial fibrillation I will start him on oral anticoagulant in addition to Plavix. Adjustment in the medicines as follows 1. Add Eliquis 5 mg twice daily 2. Will continue with aspirin and Plavix for now 3. Add ranolazine 500 mg twice daily 4. Continue rest of medications. Considering his recent angioplasty of proximal LAD, less than 3 weeks, I will continue him on triple regimen i.e. DAPT and Eliquis as his bleeding risk is not high. After couple of months we will discontinue aspirin and to continue him on Plavix along with Eliquis Follow-up in the cardiac clinic in 2 weeks. (2) NSTEMI (non-ST elevated myocardial infarction): Consult Attestations 2 Medical Necessity Statement: NSTEMI and atrial fibrillation requiring intravenous heparin Coding Level of Care Code 41497 Diagnoses New onset a-fib I48.91 NSTEMI (non-ST elevated myocardial infarction) I21.4 Time Spent (min) 40
--- NOTE | 2024-07-13 10:52 | P.PN_ITS ---
Subjective 2 Subjective: History and physical reviewed. Patient reports mild discomfort, that is the best it has been, in his chest. No shortness of breath currently. I visited the patient twice, and cardiology has also evaluated the patient. Medications: Reviewed: Yes Vitals/I&O/Wt Last Vital Signs Temp 98.4 F 07/13/24 07:48 Pulse 67 07/13/24 07:48 Resp 22 H 07/13/24 07:48 BP 120/61 07/13/24 08:07 Pulse Ox 95 07/13/24 07:48 O2 Del Method Room Air 07/13/24 07:48 07/12/24 07/13/24 07/13/24 22:59 06:59 14:59 Intake Total 217.917 / 217.917 290 / 290 Balance 217.917 / 217.917 290 / 290 Weight last 48 hrs Weight 87.77 kg Weight 87.628 kg Physical Exam 2 Narrative: General Exam no distress Neck is supple Cardiovascular regular rate rhythm Lungs clear Abdomen soft Extremities no cyanosis clubbing edema Data 07/13/24 03:40 07/13/24 03:40 A&P Assessment and plan (1) NSTEMI (non-ST elevated myocardial infarction): Patient presents to the hospital with non-ST elevation myocardial infarction Significant troponin elevation Recent angiogram 06/24/2024 demonstrated three-vessel disease. Patient refused bypass at that time, and an LAD stent was done. He is currently essentially discomfort free, has seen cardiology, and recommendations currently are to manage medically Continue heparin at least until tomorrow. Continue Plavix, aspirin, statin, beta-eloise. He is already on an ARB. Monitor for any recurrence of chest discomfort When discharged home, he will need a prescription for nitroglycerin sublingual as needed. He is already been placed on Imdur. (2) Hypothyroidism: Patient with history of hypothyroidism on supplementation. TSH is low. Reduce levothyroxine to 175 mcg daily (3) New onset a-fib: Patient with atrial fibrillation on presentation EKGs [id number] score will be significantly elevated, consider anticoagulation with Eliquis upon discharge. Should this occur, it may be reasonable to discharge him on Plavix and Eliquis, and remove aspirin at some point. Cardiology of course will make recommendations regarding this as well. (4) Diabetes mellitus: Consistent carb diet Sliding scale insulin Consideration of oral diabetic medication at discharge. Could consider injectables, versus Farxiga secondary to his heart disease that has been identified. Plan Hypomagnesemia, supplemented today. Recheck tomorrow. Multiple other medical problems as outlined in past medical history Full code currently Heparin will suffice for DVT prophylaxis. Attestations 2 Medical Necessity Statement*: Needs continued hospitalization for medical treatment for acute non-ST DC elevation myocardial infarction Diagnoses NSTEMI (non-ST elevated myocardial infarction) I21.4 Hypothyroidism E03.9 New onset a-fib I48.91 Diabetes mellitus E11.9 Time Spent (min) 31
[2024-07-13 11:49] LABS: Partial Thromboplastin Time 67.2 SECONDS (23.9-36.7)
[2024-07-13 11:59] LABS: Glucose Point of Care 243 mg/dL (70-110)
[2024-07-13] MEDS: insulin lispro 100 unit/1 mL SUBCUT ×3 (13:10→20:22)
[2024-07-13 17:09] LABS: Glucose Point of Care 160 mg/dL (70-110)
[2024-07-13] MEDS: pantoprazole 40 mg SDV IVP (17:15)
[2024-07-13 19:19] LABS: Partial Thromboplastin Time 56.4 SECONDS (23.9-36.7)
[2024-07-13 20:14] LABS: Glucose Point of Care 216 mg/dL (70-110)
[2024-07-13] MEDS: atorvastatin 40 mg Tablet 80 MG PO (20:22)
[2024-07-13] MEDS: heparin drip 25,000 UNIT/500 ML PREMIX 22 UNIT IV (20:24)
[2024-07-14 01:13] LABS: Partial Thromboplastin Time 67.4 SECONDS (23.9-36.7)
[2024-07-14 03:46] VITALS: BP 112/60; PULSE 67; RESP 18; TEMP 37; O2SAT 96
[2024-07-14 04:13] LABS: Basophils % 0.5 %; Eosinophils # 0.4 10^3/uL (0.0-0.8); Eosinophils % 5.4 %; Hematocrit 34.8 % (37-53); Lymphocytes # 2.3 10^3/uL (0.8-4.8); Lymphocytes % 31.7 %; Mean Corpuscular HGB Conc 32.5 g/dL (30-55); Mean Corpuscular Hemoglobin 29.4 pg (27-33); Mean Corpuscular Volume 90.6 fl (82-101); Mean Platelet Volume 10.5 fL (7.4-10.4); Monocytes # 0.7 10^3/uL (0.2-0.9); Monocytes % 8.8 %; Neutrophils # 3.92 10^3/uL (1.8-7.7); Neutrophils % 53.1 %; Nucleated Red Blood Cells % 0 %; Platelet Count 180 10^3/cmm (157-399); Red Blood Count 3.84 10^6/uL (3.85-5.65); Red Cell Distribution Width 13.5 % (12.1-15.1); White Blood Count 7.39 10^3/uL (3.29-11.43)
[2024-07-14 04:31] LABS: Alanine Aminotransferase 14 U/L (0-41); Albumin Level 3.4 g/dL (3.5-5.2); Alkaline Phosphatase 51 U/L (40-130); Anion Gap 12.9 (5-19); Aspartate Amino Transferase 14 U/L (0-40); Blood Urea Nitrogen 15 mg/dL (8-23); Calcium 8.1 mg/dL (8.5-10.5); Carbon Dioxide 23 mmol/L (22-29); Chloride 103 mmol/L (98-107); Creatinine Clr Calc Pharmacy 59.6369; Globulin 2.5 g/dL (1.3-4.6); Glomerular Filtration Rate 54.9 mL/min (90-130); Glucose 233 mg/dL (65-115); Magnesium 1.7 mg/dL (1.7-2.3); Osmolality Calculated 288 mOsm/kg (285-295); Potassium 3.9 mmol/L (3.5-5.1); Sodium 135 mmol/L (136-145); Total Bilirubin 0.2 mg/dL (0.15-1.2); Total Protein 5.9 g/dL (6.6-8.7)
[2024-07-14] MEDS: levothyroxine 175 mcg Tablet PO (05:24)
[2024-07-14 06:00] VITALS: PULSE 63
[2024-07-14 06:27] LABS: Glucose Point of Care 248 mg/dL (70-110)
[2024-07-14 07:23] VITALS: BP 134/71; PULSE 62; RESP 18; TEMP 36.9; O2SAT 97
[2024-07-14 07:48] LABS: Partial Thromboplastin Time 69.4 SECONDS (23.9-36.7)
[2024-07-14 08:47] VITALS: BP 134/71
[2024-07-14] MEDS: isosorbide mononitrate 20 mg Tablet PO (08:47)
[2024-07-14] MEDS: clopidogrel 75 mg Tablet PO (08:47)
[2024-07-14] MEDS: losartan 50 mg Tablet 100 MG PO (08:47)
[2024-07-14] MEDS: metoprolol succinate ER (24 HR) 25 mg Tablet 12.5 MG PO (08:47)
[2024-07-14] MEDS: insulin lispro 100 unit/1 mL SUBCUT (08:48)
[2024-07-14] MEDS: aspirin 81 mg EC Tablet PO (08:48)
[2024-07-14 09:05] VITALS: PULSE 63; RESP 18; O2SAT 96
[2024-07-14] MEDS: acetaminophen 325 mg Tablet 650 MG PO (09:18)
[2024-07-14] MEDS: magnesium sulfate premix 2 GM/50 ML PIGGYBACK IV (10:05)
--- NOTE | 2024-07-14 10:34 | P.PN_ITS ---
Subjective 2 Subjective: I saw Mr. Jaramillo this morning. This gentleman with the extensive cardiac history recent NSTEMI and triple-vessel disease, refused CABG and subsequently had an angioplasty of LAD. Revealed disease in the circumflex on the right coronary artery which is likely not amenable to any percutaneous intervention. Clinically is doing fine he is asymptomatic overnight. He is ambulating well. No angina or any heart failure symptoms. He is reverted back to sinus rhythm. On admission he was in A-fib and the event monitor he is currently wearing also showed intermittent runs of atrial fibrillation with rapid ventricular rate. Currently no heart failure symptoms either. His vitals are stable. Medications: Medication Review Details: Medication reviewed Vitals/I&O/Wt Last Vital Signs Temp 98.5 F 07/14/24 07:23 Pulse 63 07/14/24 09:05 Resp 18 07/14/24 09:05 BP 134/71 07/14/24 08:47 Pulse Ox 96 07/14/24 09:05 O2 Del Method Room Air 07/14/24 09:05 07/13/24 07/14/24 07/14/24 22:59 06:59 14:59 Intake Total 522.083 / 812.083 671.3 / 671.3 Output Total 475 / 475 650 / 1125 Balance 47.083 / 337.083 -650 / -312.917 671.3 / 671.3 Weight last 48 hrs Weight 193 lb 8 oz Weight 193 lb 8 oz Weight 193 lb 3 oz Physical Exam 2 Narrative: Sitting comfortably on the bed. No respiratory distress. Const: COMMON NORMALS: no acute distress, patient oriented x3, alert and well nourished HENMT: OTHER: Normal Eye: OTHER: Normal Chest: OTHER: Normal chest movements. No tenderness over the chest. Resp: OTHER: Good air entry bilaterally. No added sounds. Cardio: OTHER: Sinus rhythm heart rate 50s to 70s. No JVD. Normal first and second heart sounds. GI: OTHER: Soft nontender abdomen. Bowel sounds audible. Extremity: NARRATIVE EXTREMITY EXAM: No lower extremity edema. Neuro: COMMON NORMALS: patient oriented x3 SENSORIUM/ORIENTATION: Yes alert OTHER: Grossly intact. Patient moves all 4 limbs. Skin: NARRATIVE SKIN EXAM: Skin warm and dry. Data 07/14/24 03:47 07/14/24 03:47 A&P Assessment and plan (1) Atrial fibrillation: 69-year-old male patient with extensive cardiac history, angiography last month, 3 vessel disease, patient refused for CABG patient had an LAD stented. Now admitted with new onset atrial fibrillation and NSTEMI. Currently patient is asymptomatic. He is back in sinus rhythm. No further angina or any heart failure symptoms. Vitals are stable. I reviewed his cardiac cath and angioplasty procedure in detail. CABG was the better option which was offered to patient and after his refusal LAD was stented. Review of last cath revealed LCx and RCA are not suitable targets for percutaneous intervention. Considering currently stable cardiac status, no heart failure symptoms, recommended optimize medical management at this stage. With the paroxysmal atrial fibrillation I will start him on oral anticoagulant in addition to DAPT. Adjustment in the medicines as follows 1. DC heparin today. 2. AddEliquis 5 mg twice daily 2. Will continue with aspirin and Plavix for now 3. Add ranolazine 500 mg twice daily 4. Continue rest of medications. Considering his recent angioplasty of proximal LAD, less than 3 weeks, I will continue him on triple regimen i.e. DAPT and Eliquis as his bleeding risk is not high. After 3 months we will discontinue aspirin and to continue him on Plavix alone with Eliquis Follow-up in the cardiac clinic in 2-3 weeks. (2) NSTEMI (non-ST elevated myocardial infarction): Attestations 2 Medical Necessity Statement*: NSTEMI New onset of atrial fibrillation Coding Level of Care Code 55243 Diagnoses Atrial fibrillation I48.91 NSTEMI (non-ST elevated myocardial infarction) I21.4 Time Spent (min) 25
--- NOTE | 2024-07-14 10:35 | P.DS_ITS ---
Discharge Providers Date of Admission: 07/12/24 18:42 Date of Discharge: July 14, 2024 Attending Provider at Admission: Mable Hayes MD Attending Provider at Discharge: Dipak Duff Primary Care Provider: Deshaun Alan Diagnoses at Discharge Discharge Diagnosis (1) NSTEMI (non-ST elevated myocardial infarction): Status: Acute (2) Hypothyroidism: Status: Acute (3) New onset a-fib: Status: Acute Permanent problem details: Wearing Holter monitor currently in sinus rhythm (4) Diabetes mellitus: Status: Acute Reason for Visit Reason for Visit: Afib Hospital Course Hospital Course Very pleasant 69-year-old gentleman with history of CAD, bypass was previously considered which he had declined. He had an LAD stent placed. Presented with NSTEMI and new onset atrial fibrillation. Was assessed by cardiology. On further assessment, discussion of options continued with medical management. Was treated with anticoagulation, continued on aspirin, Plavix, statin, beta- eloise. Ranolazine was added. With consideration of bleeding risks, noelle mcmahan is continuing him on triple therapy for now given recent stenting, and will adjust his medications with plans to discontinue aspirin after a few months and continuing Eliquis with Plavix. At discharge ranolazine is started as well. As per discussion he is to continue follow-up to keep optimizing cardiovascular risk factors, he monitor his blood pressure 3 times daily, discussed targeting blood pressure 120/80, continue medications, discussed limiting sodium intake. Avoiding stress, overexertion, mild to moderate activity and exercise. He knows to seek medical attention in case of any concerning symptoms. To help optimize diabetes control as well as for cardiovascular benefit after discussion he is also started on Farxiga. Physical Exam Narrative: Accompanied by his partner. Const: COMMON NORMALS: patient oriented x3 and alert GENERAL APPEARANCE: cooperative ORIENTATION/CONSCIOUSNESS: Yes awake HENMT: COMMON NORMALS: oropharynx normal Neck/C-Spine: COMMON NORMALS: no JVD Resp: COMMON NORMALS: normal respiratory effort and clear to auscultation bilaterally AUSCULTATION: clear to auscultation bilaterally Cardio: COMMON NORMALS: no JVD, regular rhythm, S1 normal heart sound present, S2 normal heart sound present and No murmurs present (Cardio) RHYTHM: regular rhythm HEART SOUNDS: S1 normal heart sound present and S2 normal heart sound present GI: COMMON NORMALS: Normal to inspection, nondistended, normoactive bowel sounds present, Soft to palpation and non-tender PALPATION: Yes Soft to palpation Extremity: COMMON NORMALS: no joint enlargement and no pedal edema Neuro: COMMON NORMALS: patient oriented x3 and moves all extremities SENSORIUM/ORIENTATION: Yes alert Skin: COMMON NORMALS: no rashes or lesions noted GENERAL SKIN EXAM: no rashes or lesions noted Discharge Data Studies Completed and Pending Completed Studies During Hospitalization Category Date Time Status CT angio chest PE protcl [id number] Routine Cat Scan 07/13/24 00:20 Completed CV. echo complete* [id number] Stat Ultrasound 07/12/24 16:53 Completed Pending at discharge Category Date Time Status PTT [Partial Thromboplastin Time] Timed Lab 07/14/24 13:00 Ordered Platelet Count Q2D Lab 07/16/24 04:00 Ordered Radiology Impressions Chest CTA 07/13/24 00:20 IMPRESSION: 1. Small pleural effusions with septal thickening and bronchial wall thickening. Findings most compatible with mild edema. There could be a component of bronchitis or respiratory bronchiolitis. 2. There are numerous small as well as slightly enlarged mediastinal and hilar lymph nodes. Findings are somewhat more numerous than generally expected on a reactive basis. Pulmonary referral may be of benefit for further appropriate workup/follow-up. COMMENTS: The presence of pulmonary emphysema on CT is an independent risk factor for lung cancer. In the absence of a history or active diagnosis of lung cancer, it is recommended that this patient with emphysema be evaluated for enrollment in a low dose CT lung cancer screening program. Laboratory Results WBC 7.39 10^3/uL (3.29-11.43) 07/14/24 03:47 RBC 3.84 10^6/uL (3.85-5.65) L 07/14/24 03:47 Hgb 11.30 g/dL (11.27-16.99) 07/14/24 03:47 Hct 34.8 % (37-53) L 07/14/24 03:47 MCV 90.6 fl (82-101) 07/14/24 03:47 MCH 29.4 pg (27-33) 07/14/24 03:47 MCHC 32.5 g/dL (30-55) 07/14/24 03:47 RDW 13.5 % (12.1-15.1) 07/14/24 03:47 Plt Count 180 10^3/cmm (157-399) 07/14/24 03:47 MPV 10.5 fL (7.4-10.4) H 07/14/24 03:47 Neut % (Auto) 53.1 % 07/14/24 03:47 Lymph % (Auto) 31.7 % 07/14/24 03:47 [place] % (Auto) 8.8 % 07/14/24 03:47 Eos % (Auto) 5.4 % 07/14/24 03:47 Baso % (Auto) 0.5 % 07/14/24 03:47 Neut # (Auto) 3.92 10^3/uL (1.8-7.7) 07/14/24 03:47 Lymph # (Auto) 2.3 10^3/uL (0.8-4.8) 07/14/24 03:47 [place] # (Auto) 0.7 10^3/uL (0.2-0.9) 07/14/24 03:47 Eos # (Auto) 0.4 10^3/uL (0.0-0.8) 07/14/24 03:47 Baso # (Auto) 0.0 10^3/uL (0.0-0.1) 07/14/24 03:47 Nucleated RBC % (auto) 0 % 07/14/24 03:47 Nucleated RBCs # 0.0 /100WBC 07/14/24 03:47 APTT 69.4 SECONDS (23.9-36.7) H 07/14/24 07:20 Sodium 135 mmol/L (136-145) L 07/14/24 03:47 Potassium 3.9 mmol/L (3.5-5.1) 07/14/24 03:47 Chloride 103 mmol/L (98-107) 07/14/24 03:47 Carbon Dioxide 23 mmol/L (22-29) 07/14/24 03:47 Anion Gap 12.9 (5-19) 07/14/24 03:47 BUN 15 mg/dL (8-23) 07/14/24 03:47 Creatinine 1.3 mg/dL (0.7-1.2) H 07/14/24 03:47 GFR Calculation 54.9 mL/min (90-130) L 07/14/24 03:47 Glucose 233 mg/dL (65-115) H 07/14/24 03:47 POC Glucose 248 mg/dL (70-110) H 07/14/24 06:22 Calculated Osmolality 288 mOsm/kg (285-295) 07/14/24 03:47 Calcium 8.1 mg/dL (8.5-10.5) L 07/14/24 03:47 Magnesium 1.7 mg/dL (1.7-2.3) 07/14/24 03:47 Total Bilirubin 0.2 mg/dL (0.15-1.2) 07/14/24 03:47 AST 14 U/L (0-40) 07/14/24 03:47 ALT 14 U/L (0-41) 07/14/24 03:47 Alkaline Phosphatase 51 U/L (40-130) 07/14/24 03:47 Troponin T Baseline 155 ng/L (0-15) H* 07/12/24 22:01 Troponin T 120 Minute 184.1 ng/L (0-15) H 07/13/24 00:12 Delta Troponin T 29.1 ABS# (0-10) H* 07/13/24 00:12 Troponin T Hi Sens 6Hr 265.6 ng/L (0-15) H 07/13/24 03:40 Troponin T Hi Sens 6Hr Delta 110.6 ng/L (0-12) H* 07/13/24 03:40 NT-Pro-B Natriuret Pep 2135 pg/mL (0-125) H 07/12/24 22:01 Total Protein 5.9 g/dL (6.6-8.7) L 07/14/24 03:47 Albumin 3.4 g/dL (3.5-5.2) L 07/14/24 03:47 Globulin 2.5 g/dL (1.3-4.6) 07/14/24 03:47 TSH 0.07 uIU/mL (0.27-4.20) L 07/12/24 22:01 Vitals Last Vital Signs Temp 98.5 F 07/14/24 07:23 Pulse 63 07/14/24 09:05 Resp 18 07/14/24 09:05 BP 134/71 11/09/24 08:47 Pulse Ox 96 07/14/24 09:05 O2 Del Method Room Air 07/14/24 09:05 Discharge Plan Discharge Patient Disposition: Home Condition: Stable Prescriptions: New nitroglycerin 0.4 mg tablet, sublingual 0.4 mg sublingual Q5M PRN (Reason: chest pain) Qty: 25 0RF Rx Instructions: do not exceed 3 doses per episode dapagliflozin propanediol 10 mg tablet 10 mg PO DAILY Qty: 90 0RF Eliquis 5 mg tablet 5 mg PO BID Qty: 180 0RF ranolazine 500 mg Tablet Extended Release 12 Hr 500 mg PO BID Qty: 180 0RF Continued liothyronine 5 mcg tablet 5 mcg PO QAM jfctledjtu-fapwknezhhjjn-tvth 50-325-40 mg tablet 1 - 2 tab PO BID PRN (Reason: Headache) doxazosin 4 mg tablet 4 mg PO BEDTIME montelukast 10 mg tablet 10 mg PO BEDTIME levothyroxine 200 mcg tablet 200 mcg PO QAM losartan 100 mg tablet 100 mg PO DAILY atorvastatin 40 mg Tablet 80 mg PO BEDTIME Qty: 60 0RF isosorbide mononitrate 20 mg Tablet 20 mg PO BID Qty: 60 0RF clopidogrel 75 mg Tablet 75 mg PO DAILY Qty: 30 0RF metoprolol succinate 25 mg Tablet Extended Release 24 Hr 12.5 mg PO DAILY Qty: 15 0RF omeprazole magnesium [Prilosec OTC] 20 mg Tablet,Delayed Release (Dr/Ec) 20 mg PO DAILY magnesium oxide 400 mg magnesium Tablet 400 mg PO DAILY aspirin 81 mg tablet,delayed release (DR/EC) 81 mg PO QAM Discharge Orders: Discharge Order (Routine); Ordered 07/14/24 Ordered By: Dipak Duff Referrals: Deshaun Alan [Primary Care Provider] - 4-7 days Laquita Juarez FNP [Nurse Practitioner] - 1 week Discharge Diet: Cardiac and Diabetic Discharge Activity: Increase activity as tolerated and Limit activity as instructed Patient Instructions: Ranolazine (By mouth), Apixaban (By mouth), Dapagliflozin (By mouth) (Mahamedxiga), Coronary Artery Disease (GEN), Opioid Safety Activity Restrictions/Additional Instructions: Follow-up with your primary provider and with cardiology for reassessment of coronary disease. Continue to monitor blood pressure and heart rates 3 times daily at home. Continue to optimize control of diabetes and other risk factors of coronary disease. You are started on Farxiga. As discussed regarding risks to monitor for any signs of urinary tract infection, any signs of peritoneal tenderness, redness, swelling or other discomfort and in case of developing and discontinue the medication immediately. Limit stress. As discussed, continue light activity, walking, rest in case of getting tired or having any shortness of breath or chest discomfort. You are prescribed nitroglycerin. If chest discomfort is not going away after third dose of nitroglycerin, call 911. Avoid shoveling any snow or any other significant exertion. For stroke risk reduction from atrial fibrillation as per cardiology you are started on Eliquis with aspirin and continuing Plavix. Please be mindful that Eliquis is a blood thinner medication which is how it helps reduce the chance of stroke, but also it increases risk of bleeding especially together with Aspirin and Plavix as per discussion with the repairer welding equipment. Avoid any injury, in case of any concerning bleeding or bleeding that is not going away, do not take any additional doses and seek medical attention in the hospital. As per your plans with the repairer welding equipment they will adjust the medications further over the next several months with discontinuation of aspirin after a few months and continue with Eliquis and Plavix alone at that point. As per cardiology recommendation he also started on ranolazine, please be mindful of any lightheadedness or feeling faint or fainting with this medication in case you experience any symptoms stop the medication and talk to your doctor. Seek medical attention in case of any worsening or new concerning symptoms. Discharge Attestations Time Spent in Discharge Care*: greater than 30 min Quality Metrics Clinical Quality Measures [ Acute Myocardial Infaction { Clinical Trial Participant: No; Contraindication to aspirin: None; Aspirin prescribed; Contraindication to statin: None; Statin prescribed;}] Coding Level of Care Code 20572 Total time (in minutes) for Discharge: 45 Diagnoses NSTEMI (non-ST elevated myocardial infarction) I21.4 Hypothyroidism E03.9 New onset a-fib I48.91 Diabetes mellitus E11.9
[2024-07-14] MEDS: ranolazine (12HR) 500 mg Tablet PO (10:59)
[2024-07-14 11:04] VITALS: BP 134/71; PULSE 80; RESP 19; TEMP 36.7; O2SAT 96
== END 2024-07-14 11:18 | disposition home or self-care (01) | DRG 282 ==
PROVIDERS: Internal Medicine; Admitting Provider Internal Medicine; PCP Family Medicine; Visit Provider Internal Medicine
DX: I21.4 Non-ST elevation (NSTEMI) myocardial infarction (principal); I25.10 Atherosclerotic heart disease of native coronary artery without angina pectoris; I48.0 Paroxysmal atrial fibrillation; E03.9 Hypothyroidism, unspecified; E11.9 Type 2 diabetes mellitus without complications; E83.42 Hypomagnesemia; Z79.82 Long term (current) use of aspirin; Z79.02 Long term (current) use of antithrombotics/antiplatelets; Z95.5 Presence of coronary angioplasty implant and graft; Z87.891 Personal history of nicotine dependence
CPT/HCPCS: 36415; 36416; 71275; 80053; 82962; 83735; 83880; 84443; 84484; 85025; 85730; 93005; 93306; 96372; 96376; J1644; J1815; J2470; J3475